=== PATIENT | female | born 1950 | race African-American/Black ===

== ENCOUNTER 2017-01-10 21:14 | Inpatient (IN) | payer MEDICAID, MEDICARE ==
[~2017-01-10] VITALS: Ht 162.6 cm; Wt 90.7 kg
[2017-01-10 21:31] VITALS: BP 128/86
[2017-01-10] MEDS ORDERED: NORCO 5-325 TA1 EACH ORAL (21:37)
[2017-01-10] MEDS ORDERED: ATORVASTATIN CA10 MG ORAL (21:37)
[2017-01-10] MEDS ORDERED: ASPIRIN EC81 MG ORAL (21:37)
[2017-01-10] MEDS ORDERED: AMLODIPINE BESY10 MG ORAL (21:37)
[2017-01-10] MEDS ORDERED: APRESOLINE10 MG ORAL (21:37)
[2017-01-10] MEDS ORDERED: ATIVAN0.5 MG ORAL (21:37)
[2017-01-10] MEDS ORDERED: COLACE250 MG ORAL (21:37)
[2017-01-10] MEDS ORDERED: ISOSORBIDE MONO30 M1 PO (21:37)
[2017-01-10] MEDS ORDERED: ACETAMINOPHEN325 M1 ORAL (21:37)
[2017-01-10] MEDS ORDERED: PANTOPRAZOLE SO40 MG ORAL (21:37)
[2017-01-10] MEDS ORDERED: CATAPRES0.1 MG ORAL (21:37)
[2017-01-10] MEDS ORDERED: CEFTRIAXONE2 G2 IV (21:37)
[2017-01-10] MEDS ORDERED: RELISTOR150 MG PO (21:37)
[2017-01-10 21:43] LABS: MEAN CORPUSCULAR HEMOGLOBIN 27.2 PG (27.0-31.0); MEAN CORPUSCULAR HGB CONC 29.8 G/DL (32.0-36.0); MEAN CORPUSCULAR VOLUME 91 FL (80-99); MEAN PLATELET VOLUME 5.5 FL (6.5-10.1); PLATELET COUNT 286 K/UL (150-450); RED BLOOD COUNT 4.28 M/UL (4.20-5.40); RED CELL DISTRIBUTION WIDTH 18.9 % (11.6-14.8)
[2017-01-10 21:45] LABS: BASOPHILS % (AUTO) 2.1 % (0.0-2.0); EOSINOPHILS % (AUTO) 0.6 % (0.0-3.0); LYMPHOCYTES % (AUTO) 4.7 % (20.0-45.0); MONOCYTES % (AUTO) 6.1 % (1.0-10.0); NEUTROPHILS % (AUTO) 86.5 % (45.0-75.0)
[2017-01-10 22:00] LABS: ANION GAP 9 mmol/L (5-15); CALCIUM 8.2 MG/DL (8.5-10.1); CARBON DIOXIDE 23 MMOL/L (21-32); CHLORIDE 111 MMOL/L (98-107); CREATININE 0.7 MG/DL (0.55-1.30); GLOMERULAR FILTRATION RATE > 60 mL/min (>60); POTASSIUM 3.9 MMOL/L (3.5-5.1); SODIUM 143 MMOL/L (136-145)
[2017-01-10 22:08] LABS: ABG PCO2 28.7 mmHg (35.0-45.0)
[2017-01-10 22:09] LABS: ABG BASE EXCESS -0.7
[2017-01-10 22:10] LABS: ABG ALLEN TEST POSITIVE
--- NOTE | 2017-01-10 22:10 | Emergency Room Report ---
History of Present Illness General Chief Complaint: Chest Pain Source: Patient, Medical Record Present Illness HPI Patient present with complaints of chest pain left-sided Shortness of breath patient reports she has a history of COPD and lung disease She is on oxygen at the long term She reports being recently diagnosed with an infection in the heart has a PICC line in place Denies any vomiting or diarrhea denies any neck pain or photophobia Patient does have some exertional dyspnea Has a mild cough as well Pain or chest area is 5/10 burning sensation Allergies: Coded Allergies: No Known Allergies (Unverified , 01/10/17) Patient History Past Medical History: see triage record Pertinent Family History: none Last Menstrual Period: none Now: No : 0 Para: 0 Reviewed Nursing Documentation: PMH: Agreed, PSxH: Agreed Nursing Documentation-PMH Hx Cardiac Problems: Yes - Endocarditis, Heart Failure Hx Hypertension: Yes Hx COPD: Yes - dyspnea Hx Gastrointestinal Problems: Yes - Gastritis, Diverticulitis Review of Systems All Other Systems: negative except mentioned in HPI Physical Exam Vital Signs Date Time Temp Pulse Resp B/P (MAP) Pulse Ox O2 Delivery O2 Flow Rate FiO2 01/10/17 21:08 98.8 110 24 122/85 87 Simple Mask 12.0 01/10/17 21:58 40 Sp02 EP Interpretation: reviewed, abnormal - 87% which is a low oxygenation, on BiPAP the patient is at 95% which is normal oxygen General Appearance: mild distress - appears uncomfortable Head: normocephalic, atraumatic Eyes: bilateral eye PERRL, bilateral eye EOMI ENT: hearing grossly normal, normal pharynx Neck: full range of motion, supple Respiratory: no retraction, no accessory muscle use, crackles - Bilaterally no obvious retractions, no obvious wheezing, Cardiovascular #1: regular rate, rhythm, no edema Gastrointestinal: normal bowel sounds, soft, no mass Musculoskeletal: normal inspection, back normal Neurologic: alert, oriented x3, responsive Skin: other - PICC line in the right upper arm Lymphatic: no adenopathy Medical Decision Making Diagnostic Impression: Primary Impression: Acute CHF Additional Impressions: Pulmonary edema COPD exacerbation ER Course Patient is a fairly complex patient with multiple differential to consideration including but not limited to cardiac cardiopulmonary and vascular emergencies Upon initial arrival the patient was placed on BiPAP X-ray shows pulmonary congestion X-ray shows congestion along with possible infiltrates Patient was fairly hypoxic on the ABG and continued on BiPAP At this time also receiving Lasix and admitted for further care Labs Test 01/10/17 21:02 01/10/17 21:20 01/10/17 22:05 01/11/17 04:30 White Blood Count 13.0 K/UL (4.8-10.8) 9.6 K/UL (4.8-10.8) Red Blood Count 4.28 M/UL (4.20-5.40) 4.67 M/UL (4.20-5.40) Hemoglobin 11.6 G/DL (12.0-16.0) 12.7 G/DL (12.0-16.0) Hematocrit 39.1 % (37.0-47.0) 41.7 % (37.0-47.0) Mean Corpuscular Volume 91 FL (80-99) 89 FL (80-99) Mean Corpuscular Hemoglobin 27.2 PG (27.0-31.0) 27.2 PG (27.0-31.0) Mean Corpuscular Hemoglobin Concent 29.8 G/DL (32.0-36.0) 30.5 G/DL (32.0-36.0) Red Cell Distribution Width 18.9 % (11.6-14.8) 19.0 % (11.6-14.8) Platelet Count 286 K/UL (150-450) 302 K/UL (150-450) Mean Platelet Volume 5.5 FL (6.5-10.1) 6.6 FL (6.5-10.1) Neutrophils (%) (Auto) 86.5 % (45.0-75.0) % (45.0-75.0) Lymphocytes (%) (Auto) 4.7 % (20.0-45.0) % (20.0-45.0) Monocytes (%) (Auto) 6.1 % (1.0-10.0) % (1.0-10.0) Eosinophils (%) (Auto) 0.6 % (0.0-3.0) % (0.0-3.0) Basophils (%) (Auto) 2.1 % (0.0-2.0) % (0.0-2.0) Sodium Level 143 MMOL/L (136-145) Potassium Level 3.9 MMOL/L (3.5-5.1) Chloride Level 111 MMOL/L (98-107) Carbon Dioxide Level 23 MMOL/L (21-32) Anion Gap 9 mmol/L (5-15) Blood Urea Nitrogen 8 mg/dL (7-18) Creatinine 0.7 MG/DL (0.55-1.30) Estimat Glomerular Filtration Rate > 60 mL/min (>60) Glucose Level 126 MG/DL (74-106) Calcium Level 8.2 MG/DL (8.5-10.1) Total Bilirubin 0.4 MG/DL (0.2-1.0) Aspartate Amino Transf (AST/SGOT) 27 U/L (15-37) Alanine Aminotransferase (ALT/SGPT) 42 U/L (12-78) Alkaline Phosphatase 80 U/L (46-116) Total Creatine Kinase 51 U/L (26-308) Creatine Kinase MB 3.2 NG/ML (0.0-3.6) Creatine Kinase MB Relative Index 6.2 Troponin I 0.035 ng/mL (0.000-0.056) Pro-B-Type Natriuretic Peptide 2456 pg/mL (0-125) Total Protein 5.6 G/DL (6.4-8.2) Albumin 2.6 G/DL (3.4-5.0) Globulin 3.0 g/dL Albumin/Globulin Ratio 0.9 (1.0-2.7) Lipase 48 U/L (73-393) Lactic Acid Level 1.70 mmol/L (0.66-2.22) Arterial Blood pH 7.493 (7.350-7.450) Arterial Blood Partial Pressure CO2 28.7 mmHg (35.0-45.0) Arterial Blood Partial Pressure O2 46.0 mmHg (75.0-100.0) Arterial Blood HCO3 21.5 mmol/L (22.0-26.0) Arterial Blood Oxygen Saturation 67.0 % (92.0-98.0) Arterial Blood Base Excess -0.7 Dell Test Positive EKG Diagnostic Results Rate: normal Rhythm: NSR ST Segments: other - Nonspecific ST and T-wave changes Rhythm Strip Diag. Results EP Interpretation: yes Rate: 66 Rhythm: NSR, no PVC's, no ectopy Chest X-Ray Diagnostic Results Chest X-Ray Diagnostic Results : Chest X-Ray Ordered: Yes # of Views/Limited/Complete: 1 View Indication: Chest Pain EP Interpretation: Yes Interpretation: no pneumothorax, other - Cardiomegaly, pulmonary congestion , no acute bony abnormality Impression: Other - Pulmonary congestion acute CHF Electronically Signed by: Jose R Wong, DO CT/MRI/US Diagnostic Results CT/MRI/US Diagnostic Results : Impression CT a chest no acute pulmonary embolism severe emphysema bronchial thickening bilateral pleural effusions hiatal hernia cardiomegaly Last Vital Signs Date Time Temp Pulse Resp B/P (MAP) Pulse Ox O2 Delivery O2 Flow Rate FiO2 01/10/17 21:58 40 01/10/17 21:45 106 25 Simple Mask 4.0 01/10/17 21:31 98.8 128/86 89 Status: improved Disposition: ADMITTED INPATIENT Condition: Serious Referrals: NON PHYSICIAN (PCP) JOSE R WONG D.O. Jan 10, 2017 22:10
[2017-01-10 22:13] LABS: ALANINE AMINOTRANSFERASE 42 U/L (12-78); ALBUMIN/GLOBULIN RATIO 0.9 (1.0-2.7); ASPARTATE AMINO TRANSFERASE 27 U/L (15-37); CKMB 3.2 NG/ML (0.0-3.6); LIPASE 48 U/L (73-393); TOTAL PROTEIN 5.6 G/DL (6.4-8.2)
[2017-01-10 23:06] VITALS: BP 136/91
[2017-01-10] MEDS ORDERED: LORazepam 0.5mg tab ORAL PRN (23:30)
[2017-01-10] MEDS ORDERED: Promethazine/Codeine 5ml UD ORAL PRN (23:30)
[2017-01-10] MEDS ORDERED: Albuterol/Ipratropium 3ml neb HHN PRN (23:30)
[2017-01-10] MEDS ORDERED: Nitroglycerin Subl 0.4mg tab SL PRN (23:30)
[2017-01-10] MEDS ORDERED: LORazepam Inj 2mg/ml 1ml IV PRN (23:30)
[2017-01-10] MEDS: Solu-MEDROL 125mg Inj IV SCH (23:53)
[2017-01-11] VITALS (9 sets, daily range): BP systolic 121–143; BP diastolic 87–109
[2017-01-11] MEDS ORDERED: Albuterol ud Inhalation HHN ONE
[2017-01-11] MEDS ORDERED: Ipratropium 0.02% Inh Soln 2.5ml UD HHN ONE
[2017-01-11 04:38] LABS: MEAN CORPUSCULAR HEMOGLOBIN 27.2 PG (27.0-31.0); MEAN CORPUSCULAR HGB CONC 30.5 G/DL (32.0-36.0); MEAN CORPUSCULAR VOLUME 89 FL (80-99); MEAN PLATELET VOLUME 6.6 FL (6.5-10.1); PLATELET COUNT 302 K/UL (150-450); RED BLOOD COUNT 4.67 M/UL (4.20-5.40); WHITE BLOOD COUNT 9.6 K/UL (4.8-10.8)
[2017-01-11 04:52] LABS: ALANINE AMINOTRANSFERASE 47 U/L (12-78); ALBUMIN/GLOBULIN RATIO 0.9 (1.0-2.7); ANION GAP 9 mmol/L (5-15); ASPARTATE AMINO TRANSFERASE 24 U/L (15-37); CALCIUM 8.9 MG/DL (8.5-10.1); CARBON DIOXIDE 27 MMOL/L (21-32); CHLORIDE 107 MMOL/L (98-107); CREATININE 0.9 MG/DL (0.55-1.30); GLOMERULAR FILTRATION RATE > 60 mL/min (>60); POTASSIUM 4.1 MMOL/L (3.5-5.1); SODIUM 142 MMOL/L (136-145); TOTAL PROTEIN 6.5 G/DL (6.4-8.2)
[2017-01-11] MEDS: Morphine Sulfate 2mg/ml Inj IVP PRN ×4 (05:24→21:08)
[2017-01-11] MEDS: Solu-MEDROL 125mg Inj IV SCH ×3 (06:09→17:50)
[2017-01-11 08:06] LABS: ANISOCYTOSIS 1+; BAND NEUTROPHILS % (MANUAL) 0 % (0-8); BASOPHILS % (MANUAL) 0 % (0-2); EOSINOPHILS % (MANUAL) 0 % (0-3); HYPOCHROMASIA 1+; LYMPHOCYTES % (MANUAL) 2 % (20-45); NEUTROPHILS % (MANUAL) 97 % (45-75); PLATELET ESTIMATE ADEQUATE; PLATELET MORPHOLOGY NORMAL; TOTAL CELLS COUNTED 100
[2017-01-11] MEDS ORDERED: HydrALAZINE 10mg Tab ONE (09:44)
[2017-01-11] MEDS ORDERED: Heparin 5000 units/ml inj ONE (09:44)
--- NOTE | 2017-01-11 09:52 | Diagnostic Imaging Report ---
Indication: Chest pain Technique: One view of the chest Comparison: none Findings: The heart is enlarged. There is a calcified granulomatous lymph node in the left aortopulmonary window. There is bilateral diffuse interstitial prominence. There is slight hyperlucency of the right upper lung. There is a right arm PICC Impression: Cardiomegaly Diffuse bilateral interstitial prominence. Subsequent chest CT indicates this is mostly on the basis of chronic interstitial fibrosis. There is probably a component of interstitial congestion as well, however Upper lobe hyperlucency, again the basis of COPD changes Small bilateral pleural effusions Evidence of old granulomatous disease
[2017-01-11] MEDS: HydrALAZINE 10mg Tab ORAL SCH ×2 (09:55→21:08)
[2017-01-11] MEDS: Heparin 5000 units/ml inj SUBQ SCH ×2 (09:56→21:11)
--- NOTE | 2017-01-11 10:12 | Diagnostic Imaging Report ---
ndication: SOB Technique: IV administration nonionic contrast. Spiral acquisitions obtained from the lung bases to the lung apices. Multiplanar and 3-D reconstructions were generated. Total dose length product 508 mGycm. CTDIvol(s) 12, 12, 17 mGy. Dose reduction achieved using automated exposure control Comparison: None Findings: There is good quality opacification of the pulmonary arteries. No intraluminal filling defects or other findings to suggest acute pulmonary embolus are demonstrated. There is no evidence of thoracic aortic aneurysm or dissection. The ascending thoracic aorta is mildly ectatic but not aneurysmal The right and left pulmonary arteries are somewhat ectatic, measuring up to 2.7 cm in diameter. There is cardiomegaly, predominantly due to enlargement of the right atrium and right ventricle. The lungs demonstrate extensive hyperinflation in the upper lobes bilaterally. Lower lobes and right middle lobe demonstrate considerable honeycombing. There are also posterior dependent atelectatic changes. No definite mass or infiltrate is demonstrated. There are small bilateral pleural effusions There is a moderate-sized sliding-type hiatal hernia. There is esophageal wall thickening as well. No pericardial effusion. Large calcified granulomatous lymph node is seen in the aortopulmonary window. There are prominent hilar lymph nodes bilaterally. No mediastinal mass or adenopathy. The mediastinum does appear diffusely somewhat edematous. There is a lesser extent edema of the subcutaneous fat Included thyroid is unremarkable. The included upper abdominal anatomy is remarkable for the presence of a 19 mm cyst in segment 4A of the liver. Other subcentimeter low-attenuation lesions are seen in the liver which are too small to characterize. The liver is diffusely somewhat enlarged. Small enhancing and low-attenuation foci are seen in the spleen. The bones demonstrate degenerative spondylosis changes. There is a compression fracture deformity of the T8 vertebral body. Impression: No evidence of acute pulmonary embolus COPD changes Diffuse bilateral pulmonary parenchymal disease, appearance predominantly that of honeycombing, consistent with chronic interstitial fibrotic changes. Superimposed acute parenchymal changes also a possibility Small bilateral pleural effusions Cardiomegaly, predominantly right-sided Mild ectasia of the main pulmonary arteries bilaterally, could indicate pulmonary to hypertension Edema of the mediastinum and to a lesser extent the subcutaneous fat Sliding-type hiatal hernia. Esophageal wall thickening could be on the basis of esophagitis T8 compression fracture deformity, acuity indeterminate. Consider MRI if this is clinically relevant Evidence of old granulomatous disease Liver cyst. Additional subcentimeter low-attenuation lesions in the liver, most likely benign simple cysts. No further followup necessary Hepatomegaly High or low attenuation splenic foci, nonspecific This agrees with the preliminary interpretation provided overnight by [facility] teleradiology service. The CT scanner at [facility] is accredited by the [employer] and the scans are performed using protocols designed to limit radiation exposure to as low as reasonably achievable to attain images of sufficient resolution adequate for diagnostic evaluation.
--- NOTE | 2017-01-11 10:58 | Consultation ---
History of Present Illness General Date patient seen: Jan 11, 2017 Chief Complaint: Chest Pain Present Illness HPI 66 year old female with hx of COPD, on chronic O2 recent endocarditis, half-way resident brought in by paramedics with complaints of chest pain left- sided and Shortness of breath. She has some exertional dyspnea and a mild cough as well. She had a ct angio in ER ruling out PE but showing extensive emphysematous lung disease. She was started on BIPAP and admitted to [facility]. Allergies: Coded Allergies: No Known Allergies (Unverified , 01/10/17) Medication History Scheduled Amlodipine Besylate* (Amlodipine Besylate*), 10 MG ORAL BEDTIME, (Reported) Aspirin Ec* (Aspirin Ec*), 81 MG ORAL DAILY, (Reported) Atorvastatin Calcium* (Lipitor*), 10 MG ORAL BEDTIME, (Reported) Docusate Sodium (Docusate Sodium), 250 MG ORAL TWICE A DAY, (Reported) Hydralazine HCl (Hydralazine HCl), 10 MG ORAL EVERY 12 HOURS, (Reported) Isosorbide Mononitrate (Isosorbide Mononitrate Er), 30 MG PO DAILY, (Reported) Methylnaltrexone [place] (Relistor), 450 MG PO BEFORE MEALS, (Reported) Pantoprazole* (Pantoprazole*), 40 MG ORAL DAILY, (Reported) Scheduled PRN Acetaminophen* (Acetaminophen 325MG Tablet*), 325 MG ORAL Q6H PRN for Mild Pain (Pain Scale 1-3), (Reported) Acetaminophen* (Acetaminophen 325MG Tablet*), 325 MG ORAL Q6H PRN for temperature >101, (Reported) Ceftriaxone Sodium (Ceftriaxone), 2 GM IV DAILY PRN for endocarditis , (Reported ) Clonidine Hcl* (Catapres*), 0.1 MG ORAL EVERY 6 HOURS PRN for SBP >160, ( Reported) Hydrocodone Bit/Acetaminophen 5-325* ([place]ma 5-325*), 1 TAB ORAL Q4H PRN for For Pain, (Reported) Lorazepam* (Ativan*), 0.5 MG ORAL Q6HR PRN for For Anxiety, (Reported) Patient History Healthcare decision maker Resuscitation status Advanced Directive on File Past Medical/Surgical History Past Medical/Surgical History: (1) Chronic hypoxemic respiratory failure (2) Emphysema (3) Endocarditis (4) History of hypertension Review of Systems All Other Systems: negative except mentioned in HPI Physical Exam General Appearance: WD/WN, no apparent distress Lines, tubes and drains: peripheral HEENT: normocephalic Neck: non-tender, normal alignment Respiratory/Chest: chest wall non-tender, rhonchi - left, rhonchi - right Cardiovascular/Chest: normal peripheral pulses, normal rate Abdomen: normal bowel sounds, non tender Genitourinary/Rectal: normal genital exam, normal rectal exam Extremities: normal range of motion, non-tender Skin Exam: normal pigmentation 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, no motor/sensory deficits Last 24 Hour Vital Signs Date Time Temp Pulse Resp B/P (MAP) Pulse Ox O2 Delivery O2 Flow Rate FiO2 01/11/17 10:35 99 16 133/95 100 Bi-pap 40 01/11/17 09:55 135/104 01/11/17 09:14 100 22 100 Facial 40 01/11/17 08:40 98 21 141/109 98 4.0 40 01/11/17 08:02 95 18 100 Facial 40 01/11/17 07:30 93 21 142/107 98 4.0 40 01/11/17 06:44 98.8 93 23 143/107 98 4.0 40 01/11/17 06:13 98.8 01/11/17 05:28 98.8 93 23 143/107 98 4.0 40 01/11/17 05:19 103 23 96 Facial 40 01/11/17 03:54 97 18 95 Facial 40 01/11/17 03:53 4.0 40 01/11/17 02:52 98.8 96 14 121/93 98 Bi-pap 4.0 40 01/11/17 01:18 98.8 103 24 137/91 94 Bi-pap 4.0 40 01/11/17 01:18 4.0 40 01/11/17 00:45 106 24 92 Bi-pap 01/11/17 00:44 108 24 92 Facial 40 01/11/17 00:05 99 16 99 Bi-pap 40 01/11/17 00:03 97 16 96 Facial 40 01/10/17 23:06 98.8 95 14 136/91 96 Bi-pap 40 01/10/17 22:11 101 22 96 Facial 40 01/10/17 21:58 40 01/10/17 21:45 106 25 Simple Mask 4.0 01/10/17 21:31 98.8 106 25 128/86 89 Simple Mask 4.0 01/10/17 21:08 98.8 110 24 122/85 87 Simple Mask 12.0 Intake and Output 01/11/17 01/12/17 19:00 07:00 Intake Total 120 ml Balance 120 ml Intake Oral 120 ml Laboratory Tests Test 01/10/17 21:02 01/10/17 21:20 01/10/17 22:05 01/11/17 04:30 White Blood Count 13.0 K/UL (4.8-10.8) H 9.6 K/UL (4.8-10.8) Red Blood Count 4.28 M/UL (4.20-5.40) 4.67 M/UL (4.20-5.40) Hemoglobin 11.6 G/DL (12.0-16.0) L 12.7 G/DL (12.0-16.0) Hematocrit 39.1 % (37.0-47.0) 41.7 % (37.0-47.0) Mean Corpuscular Volume 91 FL (80-99) 89 FL (80-99) Mean Corpuscular Hemoglobin 27.2 PG (27.0-31.0) 27.2 PG (27.0-31.0) Mean Corpuscular Hemoglobin Concent 29.8 G/DL (32.0-36.0) L 30.5 G/DL (32.0-36.0) L Red Cell Distribution Width 18.9 % (11.6-14.8) H 19.0 % (11.6-14.8) H Platelet Count 286 K/UL (150-450) 302 K/UL (150-450) Mean Platelet Volume 5.5 FL (6.5-10.1) L 6.6 FL (6.5-10.1) Neutrophils (%) (Auto) 86.5 % (45.0-75.0) H % (45.0-75.0) Lymphocytes (%) (Auto) 4.7 % (20.0-45.0) L % (20.0-45.0) Monocytes (%) (Auto) 6.1 % (1.0-10.0) % (1.0-10.0) Eosinophils (%) (Auto) 0.6 % (0.0-3.0) % (0.0-3.0) Basophils (%) (Auto) 2.1 % (0.0-2.0) H % (0.0-2.0) Sodium Level 143 MMOL/L (136-145) 142 MMOL/L (136-145) Potassium Level 3.9 MMOL/L (3.5-5.1) 4.1 MMOL/L (3.5-5.1) Chloride Level 111 MMOL/L (98-107) H 107 MMOL/L (98-107) Carbon Dioxide Level 23 MMOL/L (21-32) 27 MMOL/L (21-32) Anion Gap 9 mmol/L (5-15) 9 mmol/L (5-15) Blood Urea Nitrogen 8 mg/dL (7-18) 9 mg/dL (7-18) Creatinine 0.7 MG/DL (0.55-1.30) 0.9 MG/DL (0.55-1.30) Estimat Glomerular Filtration Rate > 60 mL/min (>60) > 60 mL/min (>60) Glucose Level 126 MG/DL (74-106) H 139 MG/DL (74-106) H Calcium Level 8.2 MG/DL (8.5-10.1) L 8.9 MG/DL (8.5-10.1) Total Bilirubin 0.4 MG/DL (0.2-1.0) 0.5 MG/DL (0.2-1.0) Aspartate Amino Transf (AST/SGOT) 27 U/L (15-37) 24 U/L (15-37) Alanine Aminotransferase (ALT/SGPT) 42 U/L (12-78) 47 U/L (12-78) Alkaline Phosphatase 80 U/L (46-116) 91 U/L (46-116) Total Creatine Kinase 51 U/L (26-308) Creatine Kinase MB 3.2 NG/ML (0.0-3.6) Creatine Kinase MB Relative Index 6.2 Troponin I 0.035 ng/mL (0.000-0.056) Pro-B-Type Natriuretic Peptide 2456 pg/mL (0-125) H Total Protein 5.6 G/DL (6.4-8.2) L 6.5 G/DL (6.4-8.2) Albumin 2.6 G/DL (3.4-5.0) L 3.0 G/DL (3.4-5.0) L Globulin 3.0 g/dL 3.5 g/dL Albumin/Globulin Ratio 0.9 (1.0-2.7) L 0.9 (1.0-2.7) L Lipase 48 U/L (73-393) L Lactic Acid Level 1.70 mmol/L (0.66-2.22) Arterial Blood pH 7.493 (7.350-7.450) Arterial Blood Partial Pressure CO2 28.7 mmHg (35.0-45.0) L Arterial Blood Partial Pressure O2 46.0 mmHg (75.0-100.0) Arterial Blood HCO3 21.5 mmol/L (22.0-26.0) L Arterial Blood Oxygen Saturation 67.0 % (92.0-98.0) L Arterial Blood Base Excess -0.7 Dell Test Positive Differential Total Cells Counted 100 Neutrophils % (Manual) 97 % (45-75) H Lymphocytes % (Manual) 2 % (20-45) L Monocytes % (Manual) 1 % (1-10) Eosinophils % (Manual) 0 % (0-3) Basophils % (Manual) 0 % (0-2) Band Neutrophils 0 % (0-8) Platelet Estimate Adequate Platelet Morphology Normal Red Blood Cell Morphology Hypochromasia 1+ Anisocytosis 1+ Height (Feet): 5 Height (Inches): 4.00 Weight (Pounds): 200 Medications Current Medications Medications (Trade) Dose Ordered Sig/[place] Route PRN Reason Start Time Stop Time Status Last Admin Dose Admin Acetaminophen (Tylenol) 650 mg Q4H PRN ORAL fever 01/10/17 23:30 02/09/17 23:29 Albuterol/ Ipratropium (Albuterol/ Ipratropium) 3 ml EVERY 4 HOURS PRN HHN dyspnea 01/10/17 23:30 01/15/17 23:29 Amlodipine Besylate (Norvasc) 10 mg BEDTIME ORAL 01/11/17 21:00 02/10/17 20:59 Clonidine HCl (Catapres) 0.1 mg Q4H PRN ORAL sbp more than 160 01/11/17 10:00 02/10/17 09:59 Dextrose (Dextrose 50%) STAT PRN IV Hypoglycemia 01/10/17 23:30 02/09/17 23:29 Heparin Sodium (Porcine) (Heparin 5000 units/ml) 5,000 units EVERY 12 HOURS SUBQ 01/11/17 09:00 02/10/17 08:59 01/11/17 09:56 Hydralazine HCl (Apresoline) 10 mg EVERY 12 HOURS ORAL 01/11/17 09:00 02/10/17 08:59 01/11/17 09:55 Lorazepam (Ativan 2mg/ml 1ml) 0.5 mg Q4H PRN IV For Anxiety 01/10/17 23:30 01/17/17 23:29 01/11/17 08:07 Lorazepam (Ativan) 0.5 mg Q6HR PRN ORAL For Anxiety 01/10/17 23:30 01/17/17 23:29 Methylprednisolone Sodium Succinate (Solu-MEDROL) 60 mg EVERY 6 HOURS IV 01/11/17 00:00 02/10/17 00:00 01/11/17 06:09 Morphine Sulfate (Morphine Sulfate) 2 mg EVERY 4 HOURS PRN IVP severe pain 7-10 01/10/17 23:30 01/17/17 23:29 01/11/17 05:24 Nitroglycerin (Ntg) 0.4 mg Q5M X 3 DOSES PRN SL Prn Chest Pain 01/10/17 23:30 02/09/17 23:29 Ondansetron HCl (Zofran) 4 mg Q6H PRN IVP Nausea & Vomiting 01/10/17 23:30 02/09/17 23:29 Pantoprazole (Protonix) 40 mg DAILY ORAL 01/11/17 09:00 02/10/17 08:59 01/11/17 09:55 Promethazine HCl/ Codeine (Phenergan with Codeine) 5 ml EVERY 6 HOURS PRN ORAL cough 01/10/17 23:30 02/09/17 23:29 Temazepam (Restoril) 15 mg HSPRN PRN ORAL Insomnia 01/10/17 23:30 01/17/17 23:29 Assessment/Plan Problem List: (1) Acute on chronic respiratory failure ICD Codes: J96.20 - Acute and chronic respiratory failure, unspecified whether with hypoxia or hypercapnia SNOMED: 60390195 (2) COPD exacerbation ICD Codes: J44.1 - Chronic obstructive pulmonary disease with (acute) exacerbation SNOMED: 120957509907353 (3) Emphysema ICD Codes: J43.9 - Emphysema, unspecified SNOMED: 99144040 (4) Endocarditis ICD Codes: I38 - Endocarditis, valve unspecified SNOMED: 210629, 66146846 (5) History of hypertension ICD Codes: Z86.79 - Personal history of other diseases of the circulatory system SNOMED: 702352648 Assessment/Plan titrate bipap titrate fio2 taper off bipap if possible steroids, IV check sputum ID evaluation broad spectrum IV abx GARTH LUX Jan 11, 2017 10:58
--- NOTE | 2017-01-11 11:30 | Consultation ---
History of Present Illness General Date patient seen: Jan 11, 2017 Time patient seen: 11:36 Chief Complaint: Chest Pain Present Illness HPI 66 y/o F with hx of CHF, endocarditis, gastritis and diverticultis, COPD on home O2, senior care resident presents to ED on 01/10 with complains of L side CP and SOB/RUELAS, mild cough Denies n/v/d, neck pain. On ED had CTA which was neg for PE but showed extensive emphysematous lung disease. Started on BIPAP Apparently patient has been recently diagnosed with endocarditis and is received IV abx via PICC line. On IV Vanco and Ceftriaxone until 01/19 per SNF medication list. Patient refesr being admitted to [facility] at the end of Nov 2016 where she has presented with several days of worsenin SOB and diagnosed to have endocarditis. Patient unclear of bug or valve involved. Afebrile, mild leukocytosis now resolved. Bcx p. Allergies: Coded Allergies: No Known Allergies (Unverified , 01/10/17) Medication History Scheduled Amlodipine Besylate* (Amlodipine Besylate*), 10 MG ORAL BEDTIME, (Reported) Aspirin Ec* (Aspirin Ec*), 81 MG ORAL DAILY, (Reported) Atorvastatin Calcium* (Lipitor*), 10 MG ORAL BEDTIME, (Reported) Docusate Sodium (Docusate Sodium), 250 MG ORAL TWICE A DAY, (Reported) Hydralazine HCl (Hydralazine HCl), 10 MG ORAL EVERY 12 HOURS, (Reported) Isosorbide Mononitrate (Isosorbide Mononitrate Er), 30 MG PO DAILY, (Reported) Methylnaltrexone [place] (Relistor), 450 MG PO BEFORE MEALS, (Reported) Pantoprazole* (Pantoprazole*), 40 MG ORAL DAILY, (Reported) Scheduled PRN Acetaminophen* (Acetaminophen 325MG Tablet*), 325 MG ORAL Q6H PRN for Mild Pain (Pain Scale 1-3), (Reported) Acetaminophen* (Acetaminophen 325MG Tablet*), 325 MG ORAL Q6H PRN for temperature >101, (Reported) Ceftriaxone Sodium (Ceftriaxone), 2 GM IV DAILY PRN for endocarditis , (Reported ) Clonidine Hcl* (Catapres*), 0.1 MG ORAL EVERY 6 HOURS PRN for SBP >160, ( Reported) Hydrocodone Bit/Acetaminophen 5-325* ([place] 5-325*), 1 TAB ORAL Q4H PRN for For Pain, (Reported) Lorazepam* (Ativan*), 0.5 MG ORAL Q6HR PRN for For Anxiety, (Reported) Patient History Healthcare decision maker Resuscitation status Advanced Directive on File Patient History Narrative Pmhx: as above SH: reviewed FHx: non contributory Review of Systems All Other Systems: negative except mentioned in HPI Physical Exam Physical Exam Narrative General Appearance: WD/WN, no apparent distress Lines, tubes and drains: peripheral HEENT: normocephalic Neck: non-tender, normal alignment Respiratory/Chest: chest wall non-tender, rhonchi - left, rhonchi - right Cardiovascular/Chest: normal peripheral pulses, normal rate Abdomen: normal bowel sounds, non tender Genitourinary/Rectal: normal genital exam, normal rectal exam Extremities: normal range of motion, non-tender, no swelling, erythema or TTP on joints Skin Exam: normal pigmentation, no rashes or lesions 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, no motor/sensory deficits Last 24 Hour Vital Signs Date Time Temp Pulse Resp B/P (MAP) Pulse Ox O2 Delivery O2 Flow Rate FiO2 01/11/17 10:35 99 16 133/95 100 Bi-pap 40 01/11/17 09:55 135/104 01/11/17 09:14 100 22 100 Facial 40 01/11/17 08:40 98 21 141/109 98 4.0 40 01/11/17 08:02 95 18 100 Facial 40 01/11/17 07:30 93 21 142/107 98 4.0 40 01/11/17 06:44 98.8 93 23 143/107 98 4.0 40 01/11/17 06:13 98.8 01/11/17 05:28 98.8 93 23 143/107 98 4.0 40 01/11/17 05:19 103 23 96 Facial 40 01/11/17 03:54 97 18 95 Facial 40 01/11/17 03:53 4.0 40 01/11/17 02:52 98.8 96 14 121/93 98 Bi-pap 4.0 40 01/11/17 01:18 98.8 103 24 137/91 94 Bi-pap 4.0 40 01/11/17 01:18 4.0 40 01/11/17 00:45 106 24 92 Bi-pap 01/11/17 00:44 108 24 92 Facial 40 01/11/17 00:05 99 16 99 Bi-pap 40 01/11/17 00:03 97 16 96 Facial 40 01/10/17 23:06 98.8 95 14 136/91 96 Bi-pap 40 01/10/17 22:11 101 22 96 Facial 40 01/10/17 21:58 40 01/10/17 21:45 106 25 Simple Mask 4.0 01/10/17 21:31 98.8 106 25 128/86 89 Simple Mask 4.0 01/10/17 21:08 98.8 110 24 122/85 87 Simple Mask 12.0 Intake and Output 01/11/17 01/12/17 19:00 07:00 Intake Total 120 ml Balance 120 ml Intake Oral 120 ml Laboratory Tests Test 01/10/17 21:02 01/10/17 21:20 01/10/17 22:05 01/11/17 04:30 White Blood Count 13.0 K/UL (4.8-10.8) H 9.6 K/UL (4.8-10.8) Red Blood Count 4.28 M/UL (4.20-5.40) 4.67 M/UL (4.20-5.40) Hemoglobin 11.6 G/DL (12.0-16.0) L 12.7 G/DL (12.0-16.0) Hematocrit 39.1 % (37.0-47.0) 41.7 % (37.0-47.0) Mean Corpuscular Volume 91 FL (80-99) 89 FL (80-99) Mean Corpuscular Hemoglobin 27.2 PG (27.0-31.0) 27.2 PG (27.0-31.0) Mean Corpuscular Hemoglobin Concent 29.8 G/DL (32.0-36.0) L 30.5 G/DL (32.0-36.0) L Red Cell Distribution Width 18.9 % (11.6-14.8) H 19.0 % (11.6-14.8) H Platelet Count 286 K/UL (150-450) 302 K/UL (150-450) Mean Platelet Volume 5.5 FL (6.5-10.1) L 6.6 FL (6.5-10.1) Neutrophils (%) (Auto) 86.5 % (45.0-75.0) H % (45.0-75.0) Lymphocytes (%) (Auto) 4.7 % (20.0-45.0) L % (20.0-45.0) Monocytes (%) (Auto) 6.1 % (1.0-10.0) % (1.0-10.0) Eosinophils (%) (Auto) 0.6 % (0.0-3.0) % (0.0-3.0) Basophils (%) (Auto) 2.1 % (0.0-2.0) H % (0.0-2.0) Sodium Level 143 MMOL/L (136-145) 142 MMOL/L (136-145) Potassium Level 3.9 MMOL/L (3.5-5.1) 4.1 MMOL/L (3.5-5.1) Chloride Level 111 MMOL/L (98-107) H 107 MMOL/L (98-107) Carbon Dioxide Level 23 MMOL/L (21-32) 27 MMOL/L (21-32) Anion Gap 9 mmol/L (5-15) 9 mmol/L (5-15) Blood Urea Nitrogen 8 mg/dL (7-18) 9 mg/dL (7-18) Creatinine 0.7 MG/DL (0.55-1.30) 0.9 MG/DL (0.55-1.30) Estimat Glomerular Filtration Rate > 60 mL/min (>60) > 60 mL/min (>60) Glucose Level 126 MG/DL (74-106) H 139 MG/DL (74-106) H Calcium Level 8.2 MG/DL (8.5-10.1) L 8.9 MG/DL (8.5-10.1) Total Bilirubin 0.4 MG/DL (0.2-1.0) 0.5 MG/DL (0.2-1.0) Aspartate Amino Transf (AST/SGOT) 27 U/L (15-37) 24 U/L (15-37) Alanine Aminotransferase (ALT/SGPT) 42 U/L (12-78) 47 U/L (12-78) Alkaline Phosphatase 80 U/L (46-116) 91 U/L (46-116) Total Creatine Kinase 51 U/L (26-308) Creatine Kinase MB 3.2 NG/ML (0.0-3.6) Creatine Kinase MB Relative Index 6.2 Troponin I 0.035 ng/mL (0.000-0.056) Pro-B-Type Natriuretic Peptide 2456 pg/mL (0-125) H Total Protein 5.6 G/DL (6.4-8.2) L 6.5 G/DL (6.4-8.2) Albumin 2.6 G/DL (3.4-5.0) L 3.0 G/DL (3.4-5.0) L Globulin 3.0 g/dL 3.5 g/dL Albumin/Globulin Ratio 0.9 (1.0-2.7) L 0.9 (1.0-2.7) L Lipase 48 U/L (73-393) L Lactic Acid Level 1.70 mmol/L (0.66-2.22) Arterial Blood pH 7.493 (7.350-7.450) Arterial Blood Partial Pressure CO2 28.7 mmHg (35.0-45.0) L Arterial Blood Partial Pressure O2 46.0 mmHg (75.0-100.0) Arterial Blood HCO3 21.5 mmol/L (22.0-26.0) L Arterial Blood Oxygen Saturation 67.0 % (92.0-98.0) L Arterial Blood Base Excess -0.7 Dell Test Positive Differential Total Cells Counted 100 Neutrophils % (Manual) 97 % (45-75) H Lymphocytes % (Manual) 2 % (20-45) L Monocytes % (Manual) 1 % (1-10) Eosinophils % (Manual) 0 % (0-3) Basophils % (Manual) 0 % (0-2) Band Neutrophils 0 % (0-8) Platelet Estimate Adequate Platelet Morphology Normal Red Blood Cell Morphology Hypochromasia 1+ Anisocytosis 1+ Height (Feet): 5 Height (Inches): 4.00 Weight (Pounds): 200 Medications Current Medications Medications (Trade) Dose Ordered Sig/[place] Route PRN Reason Start Time Stop Time Status Last Admin Dose Admin Acetaminophen (Tylenol) 650 mg Q4H PRN ORAL fever 01/10/17 23:30 02/09/17 23:29 Albuterol/ Ipratropium (Albuterol/ Ipratropium) 3 ml EVERY 4 HOURS PRN HHN dyspnea 01/10/17 23:30 01/15/17 23:29 Amlodipine Besylate (Norvasc) 10 mg BEDTIME ORAL 01/11/17 21:00 02/10/17 20:59 Cefepime HCl 1 gm/ Dextrose 55 ml @ 110 mls/hr Q12HR@0000,1200 IVPB 01/11/17 12:00 01/18/17 11:59 Clonidine HCl (Catapres) 0.1 mg Q4H PRN ORAL sbp more than 160 01/11/17 10:00 02/10/17 09:59 Dextrose (Dextrose 50%) STAT PRN IV Hypoglycemia 01/10/17 23:30 02/09/17 23:29 Heparin Sodium (Porcine) (Heparin 5000 units/ml) 5,000 units EVERY 12 HOURS SUBQ 01/11/17 09:00 02/10/17 08:59 01/11/17 09:56 Hydralazine HCl (Apresoline) 10 mg EVERY 12 HOURS ORAL 01/11/17 09:00 02/10/17 08:59 01/11/17 09:55 Lorazepam (Ativan 2mg/ml 1ml) 0.5 mg Q4H PRN IV For Anxiety 01/10/17 23:30 01/17/17 23:29 01/11/17 08:07 Lorazepam (Ativan) 0.5 mg Q6HR PRN ORAL For Anxiety 01/10/17 23:30 01/17/17 23:29 Methylprednisolone Sodium Succinate (Solu-MEDROL) 60 mg EVERY 6 HOURS IV 01/11/17 00:00 02/10/17 00:00 01/11/17 06:09 Morphine Sulfate (Morphine Sulfate) 2 mg EVERY 4 HOURS PRN IVP severe pain 7-10 01/10/17 23:30 01/17/17 23:29 01/11/17 05:24 Nitroglycerin (Ntg) 0.4 mg Q5M X 3 DOSES PRN SL Prn Chest Pain 01/10/17 23:30 02/09/17 23:29 Ondansetron HCl (Zofran) 4 mg Q6H PRN IVP Nausea & Vomiting 01/10/17 23:30 02/09/17 23:29 Pantoprazole (Protonix) 40 mg DAILY ORAL 01/11/17 09:00 02/10/17 08:59 01/11/17 09:55 Promethazine HCl/ Codeine (Phenergan with Codeine) 5 ml EVERY 6 HOURS PRN ORAL cough 01/10/17 23:30 02/09/17 23:29 Temazepam (Restoril) 15 mg HSPRN PRN ORAL Insomnia 01/10/17 23:30 01/17/17 23:29 Assessment/Plan Assessment/Plan Abx: Cefepime 01/11- Levaquin x1 01/11 Assesment: Acute SOB- r/o endocarditis causing CHF vs COPD exacerbations vs combination -CTA chest: No evidence of acute pulmonary embolus. COPD changes. Diffuse bilateral pulmonary parenchymal disease, appearance predominantly that of honeycombing, consistent with chronic interstitial fibrotic changes. Superimposed acute parenchymal changes also a possibility, Small bilateral pleural effusions. Cardiomegaly, predominantly right-sided Mild ectasia of the main pulmonary arteries bilaterally, could indicate pulmonary to hypertension, Edema of the mediastinum and to a lesser extent the subcutaneous fat. Sliding- type hiatal hernia. Esophageal wall thickening could be on the basis of esophagitis. T8 compression fracture deformity, acuity indeterminate. Consider MRI if this is clinically relevant. Evidence of old granulomatous disease. Liver cyst. Additional subcentimeter low-attenuation lesions in the liver, most likely benign simple cysts. No further followup necessary. Hepatomegaly. High or low attenuation splenic foci, nonspecific Recent dx of endocarditis (?valve, organism), on RX -per SNF med list: Vanco and Ceftriaxone until 01/19 Leukocytosis, resolved -afebrile -Bcx p CHF hx gastritis hxdiverticultis COPD on home O2 Plan: -Continue Cefepime pending sputum cx; upon discharge can be transitioned back to Ceftriaxone until 01/19 -Resume IV Vancomycin per her endocarditis tx regimen (will continue until 01/19 ) -obtain 2 echo to evaluate for CHF, valve malfunction -may need BABATUNDE -f/u cx -obtain records from [facility] -baseline ESR/CRP -Monitor CBC/BMP, temperatures Thank you for this consultation. Will continue to follow along with you. Discussed with Ro Johnson M.D. Jan 11, 2017 11:30
[2017-01-11] MEDS: Cefepime 1gm/D5W 55ml IVPB SCH ×2 (13:33)
--- NOTE | 2017-01-11 17:58 | Cardiology Report ---
APPROVED REPORT EKG Measurement Heart [id number] Sinus tachycardia Right axis deviation Possible Right ventricular hypertrophy Nonspecific ST abnormality Abnormal ECG
--- NOTE | 2017-01-11 18:15 | Cardiology Report ---
APPROVED REPORT EXAM: Two-dimensional and M-mode echocardiogram with Doppler and color Doppler. INDICATION Shortness of breath M-Mode DIMENSIONS IVSd1.3 (0.7-1.1cm)Left Atrium (MM)3.4 (1.6-4.0cm) LVDd2.8 (3.5-5.6cm)Aortic Root3.1 (2.0-3.7cm) PWd1.1 (0.7-1.1cm)Aortic Cusp Exc.1.9 (1.5-2.0cm) LVDs1.0 (2.5-4.0cm) PWs1.8 cm Normal left ventricular chamber size, systolic function. Asynchronous septal motion due to right ventricular volume and pressure overload (D shaped septum) Left ventricular ejection fraction estimated to be 55 %. Mild left ventricular hypertrophy. Trivial pericardial effusion. Severe right atrial and right ventricular enlargement. Left atrial chamber size within normal limits. Focal aortic valve sclerosis with adequate cusp excursion. Mildly thickened mitral valve leaflets with normal excursion. Mild mitral annulus and aortic root calcification. Normal pulmonic valve structure. Normal tricuspid valve structure. IVC dilated at 2.7 cm without physiologic collapse, estimated RAP is 20 mmHg. Left ventricle D-shape pattern, suggestive of right ventricle volume overload. A color flow and spectral Doppler study was performed and revealed: Trace aortic regurgitation. Trace mitral regurgitation. Mitral diastolic velocities suggest reduced left ventricular relaxation c/w mild LV diastolic dysfunction (Grade I ). Severe tricuspid regurgitation. Tricuspid systolic velocities suggests peak right ventricular systolic pressure of 165mmHg, consistent with severe pulmonary hypertension. Mild pulmonic regurgitation present.
--- NOTE | 2017-01-11 19:12 | Cardiology Progress Note ---
Assessment/Plan Assessment/Plan [id number] ild / honey combing copd mild diastolic dysfunction pulm htn right heart failure tv regurgitation with hx of sbe Objective Last 24 Hour Vital Signs Date Time Temp Pulse Resp B/P (MAP) Pulse Ox O2 Delivery O2 Flow Rate FiO2 01/11/17 17:43 104 20 Nasal Cannula 5.0 40 01/11/17 16:00 4.0 40 01/11/17 16:00 97.7 96 19 129/87 98 4.0 40 01/11/17 16:00 96.3 101 22 137/93 97 Bi-pap 40 01/11/17 16:00 88 01/11/17 12:00 98.1 111 20 136/102 97 Bi-pap 40 01/11/17 11:59 98.1 96 20 138/96 98 4.0 40 01/11/17 11:56 4.0 40 01/11/17 11:56 90 01/11/17 10:41 101 26 100 Facial 40 01/11/17 10:35 99 16 133/95 100 Bi-pap 40 01/11/17 09:55 135/104 01/11/17 09:14 100 22 100 Facial 40 01/11/17 08:40 98 21 141/109 98 4.0 40 01/11/17 08:02 95 18 100 Facial 40 01/11/17 07:30 93 21 142/107 98 4.0 40 01/11/17 06:44 98.8 93 23 143/107 98 4.0 40 01/11/17 06:13 98.8 01/11/17 05:28 98.8 93 23 143/107 98 4.0 40 01/11/17 05:19 103 23 96 Facial 40 01/11/17 03:54 97 18 95 Facial 40 01/11/17 03:53 4.0 40 01/11/17 02:52 98.8 96 14 121/93 98 Bi-pap 4.0 40 01/11/17 01:18 98.8 103 24 137/91 94 Bi-pap 4.0 40 01/11/17 01:18 4.0 40 01/11/17 00:45 106 24 92 Bi-pap 01/11/17 00:44 108 24 92 Facial 40 01/11/17 00:05 99 16 99 Bi-pap 40 01/11/17 00:03 97 16 96 Facial 40 11/19/17 23:06 98.8 95 14 136/91 96 Bi-pap 40 01/10/17 22:11 101 22 96 Facial 40 01/10/17 21:58 40 01/10/17 21:45 106 25 Simple Mask 4.0 01/10/17 21:31 98.8 106 25 128/86 89 Simple Mask 4.0 01/10/17 21:08 98.8 110 24 122/85 87 Simple Mask 12.0 Intake and Output 01/11/17 01/12/17 19:00 07:00 Intake Total 425 ml Balance 425 ml Intake Oral 370 ml IV Total 55 ml Laboratory Tests Test 01/10/17 21:02 01/10/17 21:20 01/10/17 22:05 01/11/17 04:30 White Blood Count 13.0 K/UL (4.8-10.8) H 9.6 K/UL (4.8-10.8) Red Blood Count 4.28 M/UL (4.20-5.40) 4.67 M/UL (4.20-5.40) Hemoglobin 11.6 G/DL (12.0-16.0) L 12.7 G/DL (12.0-16.0) Hematocrit 39.1 % (37.0-47.0) 41.7 % (37.0-47.0) Mean Corpuscular Volume 91 FL (80-99) 89 FL (80-99) Mean Corpuscular Hemoglobin 27.2 PG (27.0-31.0) 27.2 PG (27.0-31.0) Mean Corpuscular Hemoglobin Concent 29.8 G/DL (32.0-36.0) L 30.5 G/DL (32.0-36.0) L Red Cell Distribution Width 18.9 % (11.6-14.8) H 19.0 % (11.6-14.8) H Platelet Count 286 K/UL (150-450) 302 K/UL (150-450) Mean Platelet Volume 5.5 FL (6.5-10.1) L 6.6 FL (6.5-10.1) Neutrophils (%) (Auto) 86.5 % (45.0-75.0) H % (45.0-75.0) Lymphocytes (%) (Auto) 4.7 % (20.0-45.0) L % (20.0-45.0) Monocytes (%) (Auto) 6.1 % (1.0-10.0) % (1.0-10.0) Eosinophils (%) (Auto) 0.6 % (0.0-3.0) % (0.0-3.0) Basophils (%) (Auto) 2.1 % (0.0-2.0) H % (0.0-2.0) Sodium Level 143 MMOL/L (136-145) 142 MMOL/L (136-145) Potassium Level 3.9 MMOL/L (3.5-5.1) 4.1 MMOL/L (3.5-5.1) Chloride Level 111 MMOL/L (98-107) H 107 MMOL/L (98-107) Carbon Dioxide Level 23 MMOL/L (21-32) 27 MMOL/L (21-32) Anion Gap 9 mmol/L (5-15) 9 mmol/L (5-15) Blood Urea Nitrogen 8 mg/dL (7-18) 9 mg/dL (7-18) Creatinine 0.7 MG/DL (0.55-1.30) 0.9 MG/DL (0.55-1.30) Estimat Glomerular Filtration Rate > 60 mL/min (>60) > 60 mL/min (>60) Glucose Level 126 MG/DL (74-106) H 139 MG/DL (74-106) H Calcium Level 8.2 MG/DL (8.5-10.1) L 8.9 MG/DL (8.5-10.1) Total Bilirubin 0.4 MG/DL (0.2-1.0) 0.5 MG/DL (0.2-1.0) Aspartate Amino Transf (AST/SGOT) 27 U/L (15-37) 24 U/L (15-37) Alanine Aminotransferase (ALT/SGPT) 42 U/L (12-78) 47 U/L (12-78) Alkaline Phosphatase 80 U/L (46-116) 91 U/L (46-116) Total Creatine Kinase 51 U/L (26-308) Creatine Kinase MB 3.2 NG/ML (0.0-3.6) Creatine Kinase MB Relative Index 6.2 Troponin I 0.035 ng/mL (0.000-0.056) Pro-B-Type Natriuretic Peptide 2456 pg/mL (0-125) H Total Protein 5.6 G/DL (6.4-8.2) L 6.5 G/DL (6.4-8.2) Albumin 2.6 G/DL (3.4-5.0) L 3.0 G/DL (3.4-5.0) L Globulin 3.0 g/dL 3.5 g/dL Albumin/Globulin Ratio 0.9 (1.0-2.7) L 0.9 (1.0-2.7) L Lipase 48 U/L (73-393) L Lactic Acid Level 1.70 mmol/L (0.66-2.22) Arterial Blood pH 7.493 (7.350-7.450) Arterial Blood Partial Pressure CO2 28.7 mmHg (35.0-45.0) L Arterial Blood Partial Pressure O2 46.0 mmHg (75.0-100.0) Arterial Blood HCO3 21.5 mmol/L (22.0-26.0) L Arterial Blood Oxygen Saturation 67.0 % (92.0-98.0) L Arterial Blood Base Excess -0.7 Dell Test Positive Differential Total Cells Counted 100 Neutrophils % (Manual) 97 % (45-75) H Lymphocytes % (Manual) 2 % (20-45) L Monocytes % (Manual) 1 % (1-10) Eosinophils % (Manual) 0 % (0-3) Basophils % (Manual) 0 % (0-2) Band Neutrophils 0 % (0-8) Platelet Estimate Adequate Platelet Morphology Normal Red Blood Cell Morphology Hypochromasia 1+ Anisocytosis 1+ ZAIRA FARLEY Jan 11, 2017 19:12
--- NOTE | 2017-01-11 21:15 | Consultation ---
DATE OF CONSULTATION: 01/11/2017 CARDIOLOGY CONSULTATION CONSULTING PHYSICIAN: Toñito Mullins M.D. REFERRING PHYSICIAN: Neli Tucker M.D. REASON FOR REFERRAL: Persistent shortness of breath in the setting of history of endocarditis. HISTORY OF PRESENT ILLNESS: The patient is a 66-year-old female who was brought to the emergency room from a convalescent facility with increasing shortness of breath. She indicates she is having some spasms in her back and the spasm became so she got short of breath the patient was brought to the emergency room. Paramedics were summoned. She noticed at that time that her legs were swollen and she has had that on prior occasions. Nevertheless, she denies any chest pain. Denies any palpitation unless she is physically exerted, so she has dyspnea on exertion and she has occasional PND. No orthopnea. PAST MEDICAL HISTORY: Positive with history of diastolic heart failure and COPD with exacerbations; history of tricuspid valve endocarditis, which has been treated with intravenous antibiotics; systemic hypertension; history of arthritis; diverticulosis; gastritis. ALLERGIES: She denies any allergy to medications. SOCIAL HISTORY: She used to smoke. She indicates she has less than one pack per day smoking. She quit approximately six months ago. No drug use previously. She was in a convalescent facility. No alcohol at this time. REVIEW OF SYSTEMS: GASTROINTESTINAL: She denies. GENITOURINARY: She denies. PULMONARY: She does have some coughing. CONSTITUTIONAL: No fevers, chills, or night sweats. NEUROLOGIC: Negative. PHYSICAL EXAMINATION: GENERAL: An elderly female, in no respiratory distress. NECK: Supple. No jugular venous distention. LUNGS: Decreased breath sounds are noted bilaterally. No crackles. No wheezes are noted. CARDIAC: Regular rate and rhythm. No heaves, thrills, or gallops noted. ABDOMEN: Soft and nontender. Positive bowel sounds. EXTREMITIES: There is 1+ edema in lower extremities bilaterally. LABORATORY AND DIAGNOSTIC DATA: Her white count is 9.6 down from 13, with a hemoglobin of 12.7, with a platelet count of 302. Blood gases - pH of 7.43, pCO2 of 28, pO2 of 46, and 67% saturated, likely venous blood gas. Sodium 140, potassium 4.1, chloride 107, bicarbonate 27, BUN of 9, creatinine 0.9, and glucose of 139. Troponin on one occasion yesterday was 0.035. ProBNP was 2400. Her vital signs, blood pressure 129/87 to 136/102. Telemetry, sinus rhythm, sinus tachycardia. EKG, sinus rhythm, right axis deviation, incomplete right bundle-branch conduction defect, possibly right ventricular. A chest x-ray shows cardiomegaly, bilateral interstitial prominences, interstitial fibrosis possibility with small bilateral pleural effusions, old granulomata. A CT scan of the chest shows no evidence of acute pulmonary embolism, COPD changes, diffuse bilateral pulmonary parenchymal disease, probably honeycombing consistent with chronic interstitial fibrosis, small bilateral pleural effusions, right-sided cardiomegaly, mild ectasia of the pulmonary artery, acute edema of the mediastinum, though lesser degree, subcutaneous fat, sliding hiatal hernia, compression deformity of the T8, liver cysts, and hepatomegaly. ASSESSMENT AND PLAN: 1. Dyspnea, probably a combination of chronic obstructive pulmonary disease as well as honeycombing as well as possibly a component of diastolic dysfunction and failure, although that does not appear to be prominent. 2. History of tricuspid valve endocarditis. 3. Chronic obstructive pulmonary disease. 4. Honeycombing. 5. Significant pulmonary hypertension and right ventricular enlargement, which is likely secondary to her chronic lung disease. 6. Cor pulmonale. Dr. Tucker, this patient was seen in cardiac consultation. The patient has several reasons to have shortness of breath, two of which were prominent on her chest x-ray and CT scan findings. She does have some mild diastolic relaxation abnormality. She has significant tricuspid regurgitation with pulmonary artery systolic pressures of being severely elevated to 160, dilated IVC, and evidence of pulmonary hypertension. There has been no evidence of pulmonary embolism on her CT scan. She probably should have a venous duplex of the lower extremities. Repeat cardiac enzymes should be continued on her medications including intermittent spot doses of diuretics as needed to decrease the amount of fluid in her right leg. Toñito Mullins M.D. DR: AYLIN JOB#: [id number] CC:
[2017-01-12] VITALS: BP 122/91
[2017-01-12] MEDS: Cefepime 1gm/D5W 55ml IVPB SCH ×4 (00:52→12:38)
[2017-01-12] MEDS: Solu-MEDROL 125mg Inj IV SCH ×4 (00:53→18:29)
[2017-01-12] MEDS: Morphine Sulfate 2mg/ml Inj IVP PRN ×4 (01:46→18:53)
[2017-01-12 04:00] VITALS: BP 117/84
[2017-01-12 08:00] VITALS: BP 106/78
[2017-01-12] MEDS: HydrALAZINE 10mg Tab ORAL SCH (09:00)
[2017-01-12] MEDS: Heparin 5000 units/ml inj SUBQ SCH (09:41)
--- NOTE | 2017-01-12 11:37 | Infectious Diseases Prog Note ---
Assessment/Plan Assessment/Plan Abx: Cefepime 01/11- Levaquin x1 01/11 Assesment: Acute SOB- multifacotiral- combination of R heart failure 2ry to severe TR (?TV endocarditis) and COPD exacerbation- r/o PNA -TTE: Severe tricuspid regurgitation. right ventricle volume overload. Mildly thickened mitral valve leaflets with normal excursion. Mild mitral annulus and aortic root calcification. Mitral diastolic velocities suggest reduced left ventricular relaxation c/w mild LV diastolic dysfunction (Grade I ). -CTA chest: No evidence of acute pulmonary embolus. COPD changes. Diffuse bilateral pulmonary parenchymal disease, appearance predominantly that of honeycombing, consistent with chronic interstitial fibrotic changes. Superimposed acute parenchymal changes also a possibility, Small bilateral pleural effusions. Cardiomegaly, predominantly right-sided Mild ectasia of the main pulmonary arteries bilaterally, could indicate pulmonary to hypertension, Edema of the mediastinum and to a lesser extent the subcutaneous fat. Sliding- type hiatal hernia. Esophageal wall thickening could be on the basis of esophagitis. T8 compression fracture deformity, acuity indeterminate. Consider MRI if this is clinically relevant. Evidence of old granulomatous disease. Liver cyst. Additional subcentimeter low-attenuation lesions in the liver, most likely benign simple cysts. No further followup necessary. Hepatomegaly. 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 -per SNF med list: Vanco and Ceftriaxone until 01/19 -Bcx 01/10 02/25 GPC clusters- ?contaminant vs real -ESR/CRP 01/12 normal Leukocytosis, resolved -afebrile -Bcx p CHF hx gastritis hxdiverticultis COPD on home O2 Plan: -Continue Cefepime pending sputum cx -original expected end date for endocarditis was 01/19; final duration to follow -Switch IV Vancomycin to Daptomycin 8mg/kg qd given GP bacteremia as patient was already on Vancomycin (unclear at this point if cx a contaminant or real) -obtain 2 sets of Bcx -will discuss wit cardiology re role for BABATUNDE and CT sx eval given severe TR, ? TV endocarditis and R heart failure which is an indications for valve replacement. -f/u cx -Monitor CBC/BMP, temperatures Thank you for this consultation. Will continue to follow along with you. Discussed with RN and Dr Tucker Subjective Allergies: Coded Allergies: No Known Allergies (Unverified , 01/10/17) Subjective afebrile no leukocytosis normal ESR/CRP 1/4 GPC bcx TTE with R heart failure now on 4L NC SOB better Objective Vital Signs Last 24 Hour Vital Signs Date Time Temp Pulse Resp B/P (MAP) Pulse Ox O2 Delivery O2 Flow Rate FiO2 01/12/17 09:43 99 Nasal Cannula 4.0 36 01/12/17 09:42 Nasal Cannula 4.0 36 01/12/17 09:00 106/78 01/12/17 08:00 45 01/12/17 08:00 92 01/12/17 08:00 97.0 92 20 106/78 100 Nasal Cannula 4.0 01/12/17 04:00 45 01/12/17 04:00 80 01/12/17 04:00 96.7 81 22 117/84 96 Venturi Mask 45 01/12/17 00:00 45 01/12/17 00:00 89 01/12/17 00:00 96.7 88 22 122/91 96 Venturi Mask 45 01/11/17 21:08 137/93 01/11/17 21:07 104 137/93 01/11/17 20:00 97.4 96 22 126/95 91 Nasal Cannula 5.0 01/11/17 20:00 97 01/11/17 20:00 45 01/11/17 17:43 104 20 Nasal Cannula 5.0 40 01/11/17 16:00 4.0 40 01/11/17 16:00 97.7 96 19 129/87 98 4.0 40 01/11/17 16:00 96.3 101 22 137/93 97 Bi-pap 40 01/11/17 16:00 88 01/11/17 12:00 98.1 111 20 136/102 97 Bi-pap 40 01/11/17 11:59 98.1 96 20 138/96 98 4.0 40 01/11/17 11:56 4.0 40 01/11/17 11:56 90 Height (Feet): 5 Height (Inches): 4.00 Weight (Pounds): 200 Objective General Appearance: WD/WN, no apparent distress Lines, tubes and drains: peripheral HEENT: normocephalic Neck: non-tender, normal alignment Respiratory/Chest: chest wall non-tender, rhonchi - left, rhonchi - right Cardiovascular/Chest: normal peripheral pulses, normal rate Abdomen: normal bowel sounds, non tender Genitourinary/Rectal: normal genital exam, normal rectal exam Extremities: normal range of motion, non-tender, no swelling, erythema or TTP on joints Skin Exam: normal pigmentation, no rashes or lesions 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 Complete Laboratory Tests Test 01/12/17 05:00 Erythrocyte Sedimentation Rate 2 MM/HR (0-30) C-Reactive Protein, Quantitative 0.6 mg/dL (0.00-0.90) Current Medications Medications (Trade) Dose Ordered Sig/Napoleon Route PRN Reason Start Time Stop Time Status Last Admin Dose Admin Acetaminophen (Tylenol) 650 mg Q4H PRN ORAL fever 01/10/17 23:30 02/09/17 23:29 Albuterol/ Ipratropium (Albuterol/ Ipratropium) 3 ml EVERY 4 HOURS PRN HHN dyspnea 01/10/17 23:30 01/15/17 23:29 Amlodipine Besylate (Norvasc) 10 mg BEDTIME ORAL 01/11/17 21:00 02/10/17 20:59 01/11/17 21:07 Cefepime HCl 1 gm/ Dextrose 55 ml @ 110 mls/hr Q12HR@0000,1200 IVPB 01/11/17 12:00 01/18/17 11:59 01/12/17 00:52 Chlorhexidine Gluconate (Lis-Hex 2%) 1 applic Q24H TOPIC 01/12/17 20:00 02/11/17 19:59 Clonidine HCl (Catapres) 0.1 mg Q4H PRN ORAL sbp more than 160 01/11/17 10:00 02/10/17 09:59 Dextrose (Dextrose 50%) STAT PRN IV Hypoglycemia 01/10/17 23:30 02/09/17 23:29 Heparin Sodium (Porcine) (Heparin 5000 units/ml) 5,000 units EVERY 12 HOURS SUBQ 01/11/17 09:00 02/10/17 08:59 01/12/17 09:41 Hydralazine HCl (Apresoline) 10 mg EVERY 12 HOURS ORAL 01/11/17 09:00 02/10/17 08:59 01/11/17 21:08 Lorazepam (Ativan 2mg/ml 1ml) 0.5 mg Q4H PRN IV For Anxiety 01/10/17 23:30 01/17/17 23:29 01/11/17 08:07 Lorazepam (Ativan) 0.5 mg Q6HR PRN ORAL For Anxiety 01/10/17 23:30 01/17/17 23:29 Methylprednisolone Sodium Succinate (Solu-MEDROL) 60 mg EVERY 6 HOURS IV 01/11/17 00:00 02/10/17 00:00 01/12/17 05:50 Morphine Sulfate (Morphine Sulfate) 2 mg EVERY 4 HOURS PRN IVP severe pain 7-10 01/10/17 23:30 01/17/17 23:29 01/12/17 06:07 Nitroglycerin (Ntg) 0.4 mg Q5M X 3 DOSES PRN SL Prn Chest Pain 01/10/17 23:30 02/09/17 23:29 Ondansetron HCl (Zofran) 4 mg Q6H PRN IVP Nausea & Vomiting 01/10/17 23:30 02/09/17 23:29 Pantoprazole (Protonix) 40 mg DAILY ORAL 01/11/17 09:00 02/10/17 08:59 01/12/17 09:33 Promethazine HCl/ Codeine (Phenergan with Codeine) 5 ml EVERY 6 HOURS PRN ORAL cough 01/10/17 23:30 02/09/17 23:29 Temazepam (Restoril) 15 mg HSPRN PRN ORAL Insomnia 01/10/17 23:30 01/17/17 23:29 Ro Chacon M.D. Jan 12, 2017 11:37
[2017-01-12 12:00] VITALS: BP 119/92
[2017-01-12] MEDS ORDERED: Vancomycin 1.5gm/D5W 250ml 250 ML IVPB ONE (13:00)
[2017-01-12 16:00] VITALS: BP 124/90
[2017-01-12] MEDS ORDERED: DAPTOMYCIN IV SCH (16:00)
[2017-01-12] MEDS ORDERED: NS IV SCH (16:00)
--- NOTE | 2017-01-12 16:18 | Cardiology Progress Note ---
Assessment/Plan Assessment/Plan 1. Dyspnea, probably a combination of chronic obstructive pulmonary disease as well as honeycombing abd diastolic dysfunction and failure, 2. History of tricuspid valve endocarditis. 3. Chronic obstructive pulmonary disease. 4. Honeycombing. 5. Significant pulmonary hypertension and right ventricular enlargement, 6. Cor pulmonale 7. bacteremia 7. TR sig but not sure how much existed prior to sbe as she has sig lyung issue and p htn check orthostatic vitals as has sx decrease Norvasc dc hydralazine for now 1/2 bacteremia may be contaminant sed rate normal d/w id may be trasfered to another hospital Subjective Cardiovascular: Reports: lightheadedness, Denies: chest pain, palpitations Respiratory: Reports: shortness of breath, SOB with excertion, SOB at rest Gastrointestinal/Abdominal: Denies: abdominal pain Genitourinary: Denies: burning Objective Last 24 Hour Vital Signs Date Time Temp Pulse Resp B/P (MAP) Pulse Ox O2 Delivery O2 Flow Rate FiO2 01/12/17 15:24 89 01/12/17 15:24 5.0 01/12/17 12:00 5.0 01/12/17 12:00 97.5 91 20 119/92 90 Nasal Cannula 5.0 01/12/17 12:00 88 01/12/17 09:43 99 Nasal Cannula 4.0 36 01/12/17 09:42 Nasal Cannula 4.0 36 01/12/17 09:00 106/78 01/12/17 08:00 45 01/12/17 08:00 92 01/12/17 08:00 97.0 92 20 106/78 100 Nasal Cannula 4.0 01/12/17 04:00 45 01/12/17 04:00 80 01/12/17 04:00 96.7 81 22 117/84 96 Venturi Mask 45 01/12/17 00:00 45 01/12/17 00:00 89 01/12/17 00:00 96.7 88 22 122/91 96 Venturi Mask 45 01/11/17 21:08 137/93 01/11/17 21:07 104 137/93 01/11/17 20:00 97.4 96 22 126/95 91 Nasal Cannula 5.0 01/11/17 20:00 97 01/11/17 20:00 45 01/11/17 17:43 104 20 Nasal Cannula 5.0 40 General Appearance: alert Neck: no JVD Cardiovascular: normal rate, regular rhythm Respiratory/Chest: lungs clear Abdomen: normal bowel sounds, non tender, soft Extremities: no swelling Laboratory Tests Test 01/12/17 05:00 Erythrocyte Sedimentation Rate 2 MM/HR (0-30) Total Creatine Kinase 29 U/L (26-308) C-Reactive Protein, Quantitative 0.6 mg/dL (0.00-0.90) Microbiology Date/Time Source Procedure Growth Status 01/10/17 21:35 Blood Blood Culture - Preliminary Resulted 01/10/17 21:20 Blood Blood Culture - Preliminary NO GROWTH AFTER 24 HOURS Resulted 01/10/17 22:10 Nasal Nares MRSA Culture - Final NO METHICILLIN RESISTANT STAPH AUREUS... Complete ZAIRA FARLEY Jan 12, 2017 16:18
[2017-01-12] MEDS ORDERED: Dyna-Hex 2% Top Sol 2oz TOPIC SCH (20:00)
[2017-01-13] MEDS ORDERED: Vancomycin 1gm in D5W 275ml IVPB SCH (04:00)
--- NOTE | 2017-01-13 18:38 | Discharge Summary ---
Discharge Summary Hospital Course Date of Admission Jan 10, 2017 at 21:50 Date of Discharge Jan 12, 2017 at 20:00 Admitting Diagnosis ACS HPI Glenny Stevens is a 66 year old female who was admitted on Jan 10, 2017 at 21: 50 for Acute Coronary Syndrome Hospital Course [id number] Discharge Discharge Disposition Patient was discharged to Acute Care Facility(02) Discharge Diagnoses: Oanh Lamb NP Jan 13, 2017 18:38
--- NOTE | 2017-01-14 16:00 | Discharge Summary 2 SIG ---
DATE OF ADMISSION: 01/10/2017 DATE OF DISCHARGE: 01/12/2017 CONSULTANTS: 1. Toñito Mullins M.D. 2. Ro Chacon M.D. BRIEF HOSPITAL COURSE: The patient is a 66-year-old female with history of COPD on chronic O2, recent endocarditis, intermediate resident, was brought in by paramedics with complaint of chest pain on the left side associated with shortness of breath. She had exertional dyspnea as well as mild cough. She was recently hospitalized at [facility] [place] for COPD, CHF exacerbation, and endocarditis. On evaluation at ED, the patient came in with a PICC line as she was being treated with antibiotic at intermediate. She was hypoxemic with O2 saturation at 87. She was placed on BiPAP. Chest x-ray showed pulmonary congestion along with possible infiltrates. She was fairly hypoxic on ABG. She was continued on BiPAP. BNP was 2456. She was given IV Lasix. She had elevated WBC to 13. She had a chest CT that showed no acute pulmonary embolism, however, with severe emphysema, bronchial thickening, and bilateral pleural effusions. She was admitted to [facility] for acute respiratory failure with hypoxemia, COPD exacerbation, emphysema, and endocarditis. She was continued on BiPAP and was started on IV steroids. She was seen by Infectious Disease specialist. The patient had been on IV vancomycin and ceftriaxone at intermediate. She was continued on IV vancomycin and was given cefepime pending sputum culture. Blood culture showed growth of Staph coagulase negative. IV vancomycin was switched to daptomycin 8 mcg/kg per day given gram-positive bacteremia as the patient was already on vancomycin. Echocardiogram done showed left ventricular ejection fraction of 55%. She has significant tricuspid regurgitation with pulmonary artery systolic pressure severely elevated to 160, dilated IVD, and evidence of pulmonary hypertension. She was continued on diuretics. Care was transferred over to Dr. Monsivais. She was eventually transferred to [facility]. FINAL DIAGNOSES: 1. Acute respiratory failure. 2. Acute chronic obstructive pulmonary disease exacerbation. 3. Acute congestive heart failure, diastolic dysfunction. 4. Recent tricuspid valve endocarditis. 5. Cor pulmonale. 6. Honeycomb being of the lung consistent with chronic interstitial fibrotic changes. 7. Hypertension. 8. Emphysema. 9. Significant pulmonary hypertension and right ventricular enlargement. DISPOSITION: The patient was discharged to [facility]. Neli Tucker M.D. I have been assigned to dictate discharge summary on this account and I was not involved in the patient's management. Oanh Lamb N.P. DR: MEDHAT JOB#: [id number] CC:
== END 2017-01-12 20:00 | disposition short-term general hospital (02) | DRG 133 ==
LOC: EDBD 21:14 → EDBEDREQ 21:28 → EMR 21:45 → 2W 21:50 → EDBEDREQ 01-11 02:21 → UNDOADMIN 01-11 02:38 → 2E 01-11 02:38 → 2W 01-11 02:38 → ENRESERV 01-11 07:30 → EDBEDREQ 01-11 09:26
PROC: 5A09457 Assistance with Respiratory Ventilation, 24-96 Consecutive Hours, Continuous Positive Airway Pressure (ICD-10-PCS; principal; 2017-01-10)
DX: J96.21 Acute and chronic respiratory failure with hypoxia (principal); I50.31 Acute diastolic (congestive) heart failure; I38 Endocarditis, valve unspecified; I27.23 Pulmonary hypertension due to lung diseases and hypoxia; I27.81 Cor pulmonale (chronic); Z99.81 Dependence on supplemental oxygen; J44.1 Chronic obstructive pulmonary disease with (acute) exacerbation; I36.1 Nonrheumatic tricuspid (valve) insufficiency; J98.4 Other disorders of lung; D72.829 Elevated white blood cell count, unspecified; Z87.891 Personal history of nicotine dependence
CPT/HCPCS: 36415; 36600; 71010; 71275; 80053; 82550; 82553; 82803; 83605; 83690; 83880; 84484; 85007; 85025; 85651; 86140; 87040; 87081; 87181; 93005; 93306; 94660; 94664; 94760; 99285

== ENCOUNTER 2017-02-07 17:56 | Inpatient (IN) | payer MEDICAID, MEDICARE ==
[~2017-02-07] VITALS: Ht 165.1 cm; Wt 49.0 kg
[~2017-02-07 17:56] MED LIST: ACETAMINOPHEN325 M1 ORAL; AMLODIPINE BESY10 MG ORAL; APRESOLINE10 MG ORAL; ASPIRIN EC81 MG ORAL; ATIVAN0.5 MG ORAL; ATORVASTATIN CA10 MG ORAL; CATAPRES0.1 MG ORAL; CEFTRIAXONE2 G2 IV; COLACE250 MG ORAL; ISOSORBIDE MONO30 M1 PO; NORCO 5-325 TA1 EACH ORAL; PANTOPRAZOLE SO40 MG ORAL; RELISTOR150 MG PO
--- NOTE | 2017-02-07 18:12 | Emergency Room Report ---
History of Present Illness General Chief Complaint: Dyspnea/Respdistress Source: Patient, Medical Record, EMS Present Illness HPI 67-year-old female, coming from senior care, history of hypertension,? History of endocarditis, COPD, on 24 hour oxygen, presented shortness of breath. Per EMS patient became short of breath today, even with nonrebreather patient was satting at 89 Denies fever chills cough. Denies chest pain or abdominal pain. No nausea or vomiting When asked about history of endocarditis patient does not know answers No history of DVT or PE. Patient states that she does walk around in the senior care. Not immobilized. No recent surgeries Allergies: Coded Allergies: No Known Allergies (Unverified , 01/10/17) Patient History Past Medical History: see triage record Past Surgical History: none Pertinent Family History: none Reviewed Nursing Documentation: PMH: Agreed, PSxH: Agreed Nursing Documentation-PMH Hx Cardiac Problems: Yes - CHF Hx Hypertension: Yes Hx COPD: Yes Hx Cancer: No Hx Gastrointestinal Problems: No Hx Neurological Problems: No Review of Systems All Other Systems: negative except mentioned in HPI Physical Exam Vital Signs Date Time Temp Pulse Resp B/P (MAP) Pulse Ox O2 Delivery O2 Flow Rate FiO2 02/07/17 17:52 110 24 148/90 92 Simple Mask Sp02 EP Interpretation: abnormal - hypoxic on RA, 100 on NRB General Appearance: moderate distress, other - sob speaking in 3-4 word sentences, appears tired Head: normocephalic, atraumatic Eyes: bilateral eye normal inspection, bilateral eye PERRL, bilateral eye EOMI ENT: normal ENT inspection, normal pharynx, normal voice, moist mucus membranes Neck: normal inspection, full range of motion, supple Respiratory: other - tachypneic, hypoxic, good air entry b/l Cardiovascular #1: normal peripheral pulses, no edema, tachycardia Cardiovascular #2: 2+ radial (R), 2+ radial (L) Gastrointestinal: normal inspection, non tender, soft, non-distended, no guarding Musculoskeletal: normal inspection, back normal, normal range of motion, non- tender Neurologic: normal inspection, alert, oriented x3, responsive, motor strength/ tone normal, sensory intact, speech normal Psychiatric: normal inspection, judgement/insight normal, memory normal Skin: normal inspection, normal color, no rash, warm/dry, well hydrated, normal turgor Procedures Critical Care Time Critical Care Time 40 minutes of CC time 67-year-old female, short of breath VS: Tachycardia, tachypnea, hypoxic PLAN: IV access, labs, lactate, troponin, Blood/Urine Cx, Abx, IVF Anticipate admission to . [facility] CC time also includes review of labs, review of EMR, discussion with family and paperwork from SNF, d/w hospitalist CC could include dosing of pressors, additional Abx CC time does not include procedures Medical Decision Making Diagnostic Impression: Primary Impression: Respiratory distress Additional Impressions: Hypoxia Severe sepsis Lactic acidosis Hypoglycemia Acute renal failure ER Course 67-year-old female presents with worsening shortness of breath for one day DDX: COPD exacerbation, ACS, pneumonia, PE Plan: IV access, hall monitor, O2 nasal cannula, EKG, CXR obtain basic labs including blood gas, troponin Will consider BIPAP for persistent or worsening respiratory status ER Course: Patient was not wheezing upon coming to the emergency room, however was short of breath and hypoxic, was placed on BiPAP immediately IVF 2L bolus given broad spec abx patient remains awake, on bipap, aox4 not c/o of abdominal pain lactate noted to be elevated -- possibly 2/2 to sepsis glucose noted - amp d50 given Sepsis Re-examination Time: 10 PM VS: Temp 97 HR 99 BP when 126/100 RR 22 CVS: RRR Respiratory: Lungs clear bilaterally Peripheral pulses: 2+ radial Capillary refill: <2 seconds Skin exam: warm, dry, no rash, not mottled Disposition: Patient will be admitted to [facility]. D/W hospitalist Dr Monsivais who has accepted pt for admission Please note that this Emergency Department Report was dictated using [employer]a crew chief technology software, occasionally this can lead to erroneous entry secondary to interpretation by the dictation equipment. EKG Diagnostic Results EP Interpretation: Yes Rate: Tachycardic Rhythm: NSR ST Segments: right axis deviation, Q waves in lead 3 and aVF, multifocal atrial tachycardia ASA given to patient: no Rhythm Strip EP Interpretation: Yes Rate: 110 Rhythm: NSR, no PVCs, no ectopy Chest X-ray CXR: Ordered: Yes 1 view Indication: Short of breath EP interpretation: Yes Interpretation: No consolidation, no effusion, no PTX, no acute cardiopulmonary disease Impression: No acute disease Electronically signed by Skyler Meneses MD Laboratory Tests Test 02/07/17 18:03 02/07/17 18:30 02/07/17 20:07 02/07/17 21:21 Arterial Blood pH 7.177 (7.350-7.450) 7.225 (7.350-7.450) Arterial Blood Partial Pressure CO2 20.5 mmHg (35.0-45.0) *L 19.5 mmHg (35.0-45.0) *L Arterial Blood Partial Pressure O2 306.3 mmHg (75.0-100.0) H 60.9 mmHg (75.0-100.0) L Arterial Blood HCO3 7.4 mmol/L (22.0-26.0) L 8.5 mmol/L (22.0-26.0) L Arterial Blood Oxygen Saturation 99.3 % (92.0-98.0) H 84.9 % (92.0-98.0) L Arterial Blood Base Excess -19.0 -16.5 Dell Test Positive Positive White Blood Count 19.1 K/UL (4.8-10.8) H Red Blood Count 5.12 M/UL (4.20-5.40) Hemoglobin 12.4 G/DL (12.0-16.0) Hematocrit 45.3 % (37.0-47.0) Mean Corpuscular Volume 89 FL (80-99) Mean Corpuscular Hemoglobin 24.3 PG (27.0-31.0) L Mean Corpuscular Hemoglobin Concent 27.4 G/DL (32.0-36.0) L Red Cell Distribution Width 18.8 % (11.6-14.8) H Platelet Count 465 K/UL (150-450) H Mean Platelet Volume 6.7 FL (6.5-10.1) Neutrophils (%) (Auto) % (45.0-75.0) Lymphocytes (%) (Auto) % (20.0-45.0) Monocytes (%) (Auto) % (1.0-10.0) Eosinophils (%) (Auto) % (0.0-3.0) Basophils (%) (Auto) % (0.0-2.0) Differential Total Cells Counted 100 Neutrophils % (Manual) 84 % (45-75) H Lymphocytes % (Manual) 7 % (20-45) L Monocytes % (Manual) 9 % (1-10) Eosinophils % (Manual) 0 % (0-3) Basophils % (Manual) 0 % (0-2) Band Neutrophils 0 % (0-8) Nucleated Red Blood Cells 2 /100 WBC Platelet Estimate Increased H Platelet Morphology Normal Red Blood Cell Morphology Normal Sodium Level 144 MMOL/L (136-145) Potassium Level 4.6 MMOL/L (3.5-5.1) Chloride Level 101 MMOL/L (98-107) Carbon Dioxide Level 11 MMOL/L (21-32) L Anion Gap 32 mmol/L (5-15) H Blood Urea Nitrogen 53 mg/dL (7-18) H Creatinine 2.4 MG/DL (0.55-1.30) H Estimate Glomerular Filtration Rate 24.4 mL/min (>60) Glucose Level 45 MG/DL (74-106) L Lactic Acid Level 16.60 mmol/L (0.66-2.22) H 13.30 mmol/L (0.66-2.22) H Calcium Level 10.1 MG/DL (8.5-10.1) Total Bilirubin 2.2 MG/DL (0.2-1.0) H Direct Bilirubin 1.7 MG/DL (0.0-0.3) H Aspartate Amino Transferase (AST) 90 U/L (15-37) H Alanine Aminotransferase (ALT) 32 U/L (12-78) Alkaline Phosphatase 78 U/L (46-116) Total Creatine Kinase 52 U/L (26-308) Troponin I 0.000 ng/mL (0.000-0.056) Pro-B-Type Natriuretic Peptide 58645 pg/mL (0-125) H Total Protein 7.8 G/DL (6.4-8.2) Albumin 3.5 G/DL (3.4-5.0) Globulin 4.3 g/dL Albumin/Globulin Ratio 0.8 (1.0-2.7) L Last Vital Signs Date Time Temp Pulse Resp B/P (MAP) Pulse Ox O2 Delivery O2 Flow Rate FiO2 02/07/17 17:52 110 24 148/90 92 Simple Mask Disposition: ADMITTED INPATIENT Condition: Critical Skyler Meneses M.D. Feb 07, 2017 18:12
[2017-02-07 18:13] LABS: ABG PCO2 20.5 mmHg (35.0-45.0)
[2017-02-07 18:14] LABS: ABG ALLEN TEST POSITIVE
[2017-02-07 18:59] LABS: MEAN CORPUSCULAR HEMOGLOBIN 24.3 PG (27.0-31.0); MEAN CORPUSCULAR HGB CONC 27.4 G/DL (32.0-36.0); MEAN CORPUSCULAR VOLUME 89 FL (80-99); MEAN PLATELET VOLUME 6.7 FL (6.5-10.1); PLATELET COUNT 465 K/UL (150-450); RED BLOOD COUNT 5.12 M/UL (4.20-5.40); RED CELL DISTRIBUTION WIDTH 18.8 % (11.6-14.8); WHITE BLOOD COUNT 19.1 K/UL (4.8-10.8)
[2017-02-07 19:00] VITALS: BP 135/78
[2017-02-07] MEDS ORDERED: NS IVPB ONE (19:15)
[2017-02-07] MEDS ORDERED: Cefepime HCl 2 GM in NS 110 ML IV ONE (19:15)
[2017-02-07] MEDS ORDERED: VANCOMYCIN IVPB ONE (19:15)
[2017-02-07 19:21] LABS: ANION GAP 32 mmol/L (5-15); CALCIUM 10.1 MG/DL (8.5-10.1); CARBON DIOXIDE 11 MMOL/L (21-32); CHLORIDE 101 MMOL/L (98-107); CREATININE 2.4 MG/DL (0.55-1.30); GLOMERULAR FILTRATION RATE 24.4 mL/min (>60); POTASSIUM 4.6 MMOL/L (3.5-5.1); SODIUM 144 MMOL/L (136-145)
[2017-02-07] MEDS ORDERED: Cefepime 2gm ONE (19:22)
[2017-02-07 19:34] LABS: REFLEX LACTIC ACID YES OR NO YES
[2017-02-07 19:37] LABS: ALANINE AMINOTRANSFERASE 32 U/L (12-78); ALBUMIN/GLOBULIN RATIO 0.8 (1.0-2.7); ASPARTATE AMINO TRANSFERASE 90 U/L (15-37); TOTAL PROTEIN 7.8 G/DL (6.4-8.2)
[2017-02-07 19:38] LABS: BILIRUBIN,DIRECT 1.7 MG/DL (0.0-0.3)
[2017-02-07 20:00] LABS: LYMPHOCYTES % (MANUAL) 7 % (20-45); NEUTROPHILS % (MANUAL) 84 % (45-75); PLATELET MORPHOLOGY NORMAL; TOTAL CELLS COUNTED 100
[2017-02-07 20:01] LABS: BAND NEUTROPHILS % (MANUAL) 0 % (0-8); BASOPHILS % (MANUAL) 0 % (0-2); EOSINOPHILS % (MANUAL) 0 % (0-3); NUCLEATED RED BLOOD CELLS 2 /100 WBC; PLATELET ESTIMATE INCREASED
[2017-02-07] MEDS ORDERED: Vancomycin 1gm inj IVPB ONE (20:26)
[2017-02-07 21:37] LABS: ABG PCO2 19.5 mmHg (35.0-45.0)
[2017-02-07 21:38] LABS: ABG ALLEN TEST POSITIVE; ABG BASE EXCESS -16.5
[2017-02-07] MEDS ORDERED: Sodium Bicarbonate 50ml Carp IV ONE (21:45)
[2017-02-07 21:46] VITALS: BP 119/88
[2017-02-07 22:16] LABS: REFLEX LACTIC ACID YES OR NO YES
[2017-02-07 22:49] LABS: APPEARANCE,URINE CLEAR; KETONES,URINE 1+ (NEGATIVE); LEUKOCYTE ESTERASE ,URINE 2+ (NEGATIVE); NITRITE,URINE NEGATIVE (NEGATIVE); PH,URINE 5 (4.5-8.0); PROTEIN,URINE 2+ (NEGATIVE); UROBILINOGEN,URINE 4 MG/DL (0.0-1.0)
[2017-02-07 23:03] LABS: BACTERIA,URINE FEW /HPF; ICTOTEST NEGATIVE; RBC,URINE 0-2 /HPF (0 - 2); SQUAMOUS EPITHELIAL CELL,UR FEW /LPF (NONE/OCC)
[2017-02-07 23:05] VITALS: BP 120/91
[2017-02-08] VITALS (8 sets, daily range): BP systolic 114–149; BP diastolic 78–101
[2017-02-08] MEDS ORDERED: SERTRALINE HCL25 MG ORAL (05:12)
[2017-02-08] MEDS ORDERED: RESTORIL15 MG ORAL (05:12)
[2017-02-08] MEDS ORDERED: SPIRONOLACTONE25 MG ORAL (05:12)
[2017-02-08] MEDS ORDERED: SILDENAFIL20 MG ORAL (05:12)
[2017-02-08] MEDS ORDERED: PREDNISONE20 M1 PO (05:12)
[2017-02-08] MEDS ORDERED: Pantoprazole Inj ONE (10:37)
[2017-02-08] MEDS: NS w/KCl 20mEq 1,000 ML IV SCH (12:08)
[2017-02-08] MEDS: Zosyn 3.375gm q12h **Extended infusion IVPB SCH ×4 (12:08→23:09)
--- NOTE | 2017-02-08 12:56 | Diagnostic Imaging Report ---
Indication: Dyspnea Comparison: 01/10/2017 A single view chest radiograph was obtained. Findings: Cardiomegaly is present. Emphysema suspected in the upper lobes with lucency noted. Generalized prominence of the basilar interstitial demonstrated. Calcification in the aorticopulmonary window demonstrated. Bones are osteopenic. IMPRESSION: COPD. Old granulomatous disease
[2017-02-08] MEDS ORDERED: Piperacillin/Tazobactam 2.25 GM in D5W 55 ML IVPB SCH (14:00)
[2017-02-08] MEDS ORDERED: Vancomycin 1gm in D5W 275ml IVPB ONE (16:00)
--- NOTE | 2017-02-08 16:30 | History and Physical Report ---
DATE OF ADMISSION: 02/07/2017 HISTORY OF PRESENT ILLNESS: This is a 67-year-old female, who was brought to the hospital with shortness of breath. The patient was seen and worked up by the ER physician and the patient was placed on a BiPAP. She is a senior living resident and is a Full Code as per review of POLST form. At this time, no further information was obtainable from the ER records. The patient noted to have marked leukocytosis of 19,000 and a creatinine of 2.4. This apparently is a new finding. ABG shows 7.2, pCO2 of 60, and pO2 of 300. PAST MEDICAL HISTORY: Hypertension, history of endocarditis, COPD, and 24-hour oxygen usage. HOME MEDICATIONS: Reviewed in the chart. REVIEW OF SYSTEMS: Unreliable. ALLERGIES: None noted. PHYSICAL EXAMINATION: GENERAL: Reveals an emaciated, middle-aged female. HEENT: Unremarkable. CHEST: Exam showed decreased breath sounds bilaterally. HEART: Normal heart sounds. ABDOMEN: Soft. EXTREMITIES: There is no edema. NEUROLOGIC: Nonfocal. LABORATORY DATA: Lab testing shows white count 19,000, hemoglobin of 12, and platelet count is normal. Chemistry notable for creatinine 2.4. Lactic acid 16, now dropping to 13. Total bilirubin 2.2. ProBNP 11,616. ABG 7.2, pCO2 19, and pO2 of 60. Imaging studies per report was clear. IMPRESSION: 1. Chronic obstructive pulmonary disease with exacerbation. 2. Worsening renal failure with metabolic acidosis. 3. Leukocytosis, source unclear. 4. Lactic acidosis suspect sepsis. 5. History of congestive heart failure. DISCUSSION: Admitted to the hospital. Continue BiPAP, check ABG, start broad-spectrum antibiotics. We will consult Nephrology. We will attempt to obtain old records. We will follow carefully. [place] Monsivais M.D. DR: SADI JOB#: [id number] CC:
[2017-02-08] MEDS: Albuterol/Ipratropium 3ml neb HHN SCH ×2 (16:35→20:03)
[2017-02-08] MEDS: Heparin 5000 units/ml inj SUBQ SCH (21:23)
[2017-02-08] MEDS: Norco 5mg/325mg tab ORAL PRN (21:26)
[2017-02-09] VITALS (8 sets, daily range): BP systolic 121–139; BP diastolic 78–102
[2017-02-09] MEDS: Albuterol/Ipratropium 3ml neb HHN SCH ×4 (01:00→19:37)
[2017-02-09] MEDS: NS w/KCl 20mEq 1,000 ML IV SCH ×2 (01:45→16:09)
[2017-02-09] MEDS: Norco 5mg/325mg tab ORAL PRN ×2 (04:23→10:09)
[2017-02-09 05:20] LABS: MEAN CORPUSCULAR HEMOGLOBIN 25.4 PG (27.0-31.0); MEAN CORPUSCULAR HGB CONC 29.7 G/DL (32.0-36.0); MEAN CORPUSCULAR VOLUME 86 FL (80-99); MEAN PLATELET VOLUME 7.2 FL (6.5-10.1); PLATELET COUNT 323 K/UL (150-450); RED BLOOD COUNT 4.61 M/UL (4.20-5.40); RED CELL DISTRIBUTION WIDTH 18.5 % (11.6-14.8); WHITE BLOOD COUNT 17.6 K/UL (4.8-10.8)
[2017-02-09 05:35] LABS: ANION GAP 11 mmol/L (5-15); CALCIUM 8.6 MG/DL (8.5-10.1); CARBON DIOXIDE 23 MMOL/L (21-32); CHLORIDE 113 MMOL/L (98-107); CREATININE 1.1 MG/DL (0.55-1.30); GLOMERULAR FILTRATION RATE > 60 mL/min (>60); POTASSIUM 3.9 MMOL/L (3.5-5.1); SODIUM 147 MMOL/L (136-145)
[2017-02-09] MEDS: Pantoprazole Inj IV SCH ×2 (09:00→09:23)
[2017-02-09] MEDS: Heparin 5000 units/ml inj SUBQ SCH ×3 (09:00→20:27)
[2017-02-09 09:04] LABS: BAND NEUTROPHILS % (MANUAL) 0 % (0-8); BASOPHILS % (MANUAL) 0 % (0-2); EOSINOPHILS % (MANUAL) 0 % (0-3); LYMPHOCYTES % (MANUAL) 3 % (20-45); NEUTROPHILS % (MANUAL) 92 % (45-75); NUCLEATED RED BLOOD CELLS 4 /100 WBC; PLATELET ESTIMATE ADEQUATE; PLATELET MORPHOLOGY NORMAL; TOTAL CELLS COUNTED 100
[2017-02-09 09:05] LABS: ANISOCYTOSIS 1+
[2017-02-09 09:06] LABS: HYPOCHROMASIA 1+; POLYCHROMASIA 1+
[2017-02-09 09:33] LABS: ABG BASE EXCESS -3.3; ABG PCO2 33.3 mmHg (35.0-45.0)
[2017-02-09 09:34] LABS: ABG ALLEN TEST POSITIVE
--- NOTE | 2017-02-09 10:04 | Pulmonology Progress Note ---
Assessment/Plan Assessment/Plan 1. Chronic obstructive pulmonary disease with exacerbation. 2. Worsening renal failure with metabolic acidosis. 3. Leukocytosis, source unclear. 4. Lactic acidosis suspect sepsis. 5. History of congestive heart failure. DISCUSSION: Continue BiPAP prn; ABG adequate Continue abx Stable for transfer to [facility] Subjective Interval Events: Complaining of pain and nausea; off BiPAP Constitutional: Reports: no symptoms HEENT: Repors: no symptoms Respiratory: Reports: no symptoms Cardiovascular: Reports: no symptoms Gastrointestinal/Abdominal: Reports: no symptoms Genitourinary: Reports: no symptoms Allergies: Coded Allergies: No Known Allergies (Unverified , 01/10/17) Objective Last 24 Hour Vital Signs Date Time Temp Pulse Resp B/P (MAP) Pulse Ox O2 Delivery O2 Flow Rate FiO2 02/09/17 08:40 91 18 100 Bi-pap 70 02/09/17 08:35 87 18 99 Bi-pap 70 02/09/17 08:31 87 16 99 Facial 70 02/09/17 08:00 97.0 67 16 130/89 95 Bi-pap 70 02/09/17 07:39 70 02/09/17 07:39 89 02/09/17 05:00 82 13 96 Facial 70 02/09/17 04:00 70 02/09/17 04:00 98.1 98 18 128/85 100 Bi-pap 70 02/09/17 03:51 97 02/09/17 03:10 94 22 97 Facial 70 02/09/17 01:10 Bi-pap 70 02/09/17 01:10 Bi-pap 70 02/09/17 01:00 96 25 98 Facial 70 02/09/17 00:00 96 02/09/17 00:00 98.4 117 16 139/100 100 Bi-pap 70 02/08/17 23:07 92 16 100 Facial 70 02/08/17 21:15 98 18 99 Facial 70 02/08/17 20:00 70 02/08/17 20:00 97.4 97 21 149/101 100 Bi-pap 70 02/08/17 19:51 95 02/08/17 19:28 98 18 100 Bi-pap 70 02/08/17 19:20 95 18 100 Bi-pap 70 02/08/17 19:08 96 20 100 Facial 70 02/08/17 18:35 96 02/08/17 16:41 89 16 99 Bi-pap 70 02/08/17 16:36 92 16 99 Facial 70 02/08/17 16:00 97.3 98 18 122/91 100 Bi-pap 70 02/08/17 16:00 70 02/08/17 14:35 97 19 100 Facial 70 02/08/17 12:51 100 18 97 Facial 70 02/08/17 12:00 97.0 95 24 115/98 98 Bi-pap 70 02/08/17 12:00 70 02/08/17 11:30 99 21 131/95 99 Bi-pap 02/08/17 11:00 99 21 131/95 99 70 02/08/17 10:45 100 20 99 Facial 70 General Appearance: no acute distress HEENT: normocephalic Respiratory/Chest: chest wall non-tender, lungs clear Cardiovascular: normal peripheral pulses, normal rate Microbiology Date/Time Source Procedure Growth Status 02/07/17 18:40 Blood Blood Culture - Preliminary NO GROWTH AFTER 24 HOURS Resulted 02/07/17 18:30 Blood Blood Culture - Preliminary NO GROWTH AFTER 24 HOURS Resulted Laboratory Tests 02/08/17 12:15: Random Vancomycin Level 6.2 02/09/17 03:20: White Blood Count 17.6H, Red Blood Count 4.61, Hemoglobin 11.7L, Hematocrit 39.4 , Mean Corpuscular Volume 86, Mean Corpuscular Hemoglobin 25.4L, Mean Corpuscular Hemoglobin Concent 29.7L, Red Cell Distribution Width 18.5H, Platelet Count 323, Mean Platelet Volume 7.2, Neutrophils (%) (Auto) , Lymphocytes (%) (Auto) , Monocytes (%) (Auto) , Eosinophils (%) (Auto) , Basophils (%) (Auto) , Differential Total Cells Counted 100, Neutrophils % ( Manual) 92H, Lymphocytes % (Manual) 3L, Monocytes % (Manual) 5, Eosinophils % ( Manual) 0, Basophils % (Manual) 0, Band Neutrophils 0, Nucleated Red Blood Cells 4, Platelet Estimate Adequate, Platelet Morphology Normal, Polychromasia 1 +, Hypochromasia 1+, Anisocytosis 1+, Sodium Level 147H, Potassium Level 3.9, Chloride Level 113H, Carbon Dioxide Level 23, Anion Gap 11, Blood Urea Nitrogen 46H, Creatinine 1.1#, Estimat Glomerular Filtration Rate > 60, Glucose Level 137H, Calcium Level 8.6 02/09/17 09:25: Arterial Blood pH 7.410, Arterial Blood Partial Pressure CO2 33.3L, Arterial Blood Partial Pressure O2 82.3, Arterial Blood HCO3 20.6L, Arterial Blood Oxygen Saturation 95.1, Arterial Blood Base Excess -3.3, Dell Test Positive Current Medications Medications (Trade) Dose Ordered Sig/[place] Route PRN Reason Start Time Stop Time Status Last Admin Dose Admin Acetaminophen/ Hydrocodone Bitart ([place] 5/325) 2 tab Q6H PRN ORAL Severe Pain (Pain Scale 7-10) 02/08/17 21:00 02/12/17 21:00 02/09/17 04:23 Albuterol/ Ipratropium (Albuterol/ Ipratropium) 3 ml Q6HRT HHN 02/08/17 13:00 02/13/17 12:59 02/09/17 08:29 Dextrose (Dextrose 50%) STAT PRN IV Hypoglycemia 02/08/17 09:45 03/10/17 09:44 Heparin Sodium (Porcine) (Heparin 5000 units/ml) 5,000 units EVERY 12 HOURS SUBQ 02/08/17 21:00 03/10/17 20:59 02/09/17 09:23 Pantoprazole (Protonix) 40 mg DAILY IV 02/09/17 09:00 03/11/17 08:59 02/09/17 09:23 Piperacillin Sod/ Tazobactam Sod 3.375 gm/Dextrose 55 ml @ 13.75 mls/ hr Q12HR@1100,2300 IVPB 02/08/17 11:30 02/15/17 11:29 02/08/17 23:09 Sodium Chloride 1,000 ml @ 75 mls/hr [id number] IV 02/08/17 11:00 03/10/17 10:59 02/09/17 01:45 Vancomycin HCl (Vanco rx to dose) 1 ea DAILYPRN PRN MISC Per rx protocol 02/08/17 16:00 03/10/17 15:59 Washington Monsivais MD Feb 09, 2017 10:04
[2017-02-09] MEDS ORDERED: traMADol 50mg tab ORAL PRN (10:15)
[2017-02-09] MEDS: Zosyn 3.375gm q12h **Extended infusion IVPB SCH ×2 (11:40)
[2017-02-09] MEDS ORDERED: Vancomycin 500mg/D5W 110ml IVPB SCH ×2 (18:00)
[2017-02-09] MEDS ORDERED: Zosyn 3.375gm q8h **Extended infusion IVPB SCH ×2 (22:00)
--- NOTE | 2017-02-09 23:37 | Consultation ---
History of Present Illness General Date patient seen: Feb 09, 2017 Chief Complaint: Dyspnea/Respdistress Present Illness Allergies: Coded Allergies: No Known Allergies (Unverified , 01/10/17) Medication History Scheduled Amlodipine Besylate* (Amlodipine Besylate*), 10 MG ORAL BEDTIME, (Reported) Aspirin Ec* (Aspirin Ec*), 81 MG ORAL DAILY, (Reported) Atorvastatin Calcium* (Lipitor*), 10 MG ORAL BEDTIME, (Reported) Docusate Sodium (Docusate Sodium), 250 MG ORAL TWICE A DAY, (Reported) Hydralazine HCl (Hydralazine HCl), 10 MG ORAL EVERY 12 HOURS, (Reported) Isosorbide Mononitrate (Isosorbide Mononitrate Er), 30 MG PO DAILY, (Reported) Methylnaltrexone Hel[place] (Relistor), 450 MG PO BEFORE MEALS, (Reported) Pantoprazole* (Pantoprazole*), 40 MG ORAL DAILY, (Reported) Prednisone (Prednisone), 20 MG PO DAILY, (Reported) Sertraline Hcl* (Sertraline Hcl*), 25 MG ORAL DAILY, (Reported) Sildenafil Citrate (Sildenafil), 20 MG ORAL TID, (Reported) Spironolactone* (Aldactone*), 25 MG ORAL DAILY, (Reported) Scheduled PRN Acetaminophen* (Acetaminophen 325MG Tablet*), 325 MG ORAL Q6H PRN for Mild Pain (Pain Scale 1-3), (Reported) Acetaminophen* (Acetaminophen 325MG Tablet*), 325 MG ORAL Q6H PRN for temperature >101, (Reported) Ceftriaxone Sodium (Ceftriaxone), 2 GM IV DAILY PRN for endocarditis , (Reported ) Clonidine Hcl* (Catapres*), 0.1 MG ORAL EVERY 6 HOURS PRN for SBP >160, ( Reported) Hydrocodone Bit/Acetaminophen 5-325* ([place] 5-325*), 2 TAB ORAL Q4H PRN for For Pain, (Reported) Lorazepam* (Ativan*), 0.5 MG ORAL Q6HR PRN for For Anxiety, (Reported) Temazepam* (Restoril*), 15 MG ORAL BEDTIME PRN for Insomnia, (Reported) Patient History Healthcare decision maker Resuscitation status Full Code Advanced Directive on File No Physical Exam Last 24 Hour Vital Signs Date Time Temp Pulse Resp B/P (MAP) Pulse Ox O2 Delivery O2 Flow Rate FiO2 02/09/17 23:05 91 13 100 Facial 50 02/09/17 21:08 86 14 98 Facial 50 02/09/17 20:00 97.7 97 15 129/102 98 Venturi Mask 02/09/17 20:00 50 02/09/17 20:00 95 02/09/17 19:44 93 18 97 Bi-pap 50 02/09/17 19:37 89 18 95 Venturi Mask 14.0 55 02/09/17 19:36 88 15 98 Facial 50 02/09/17 17:09 95 16 98 Facial 50 02/09/17 16:00 97.5 93 19 121/86 96 Venturi Mask 55 02/09/17 15:58 85 02/09/17 15:58 50 02/09/17 14:48 96 16 96 Facial 50 02/09/17 13:38 87 16 99 Facial 70 02/09/17 13:30 92 18 98 Bi-pap 50 02/09/17 13:24 88 18 95 Venturi Mask 14.0 55 02/09/17 11:14 55 02/09/17 11:14 71 02/09/17 11:14 97.5 71 19 136/78 96 Venturi Mask 55 02/09/17 08:40 91 18 100 Bi-pap 70 02/09/17 08:35 87 18 99 Bi-pap 70 02/09/17 08:31 87 16 99 Facial 70 02/09/17 08:00 97.0 67 16 130/89 95 Bi-pap 70 02/09/17 07:39 70 02/09/17 07:39 89 02/09/17 05:00 82 13 96 Facial 70 02/09/17 04:00 70 02/09/17 04:00 98.1 98 18 128/85 100 Bi-pap 70 02/09/17 03:51 97 02/09/17 03:10 94 22 97 Facial 70 02/09/17 01:10 Bi-pap 70 02/09/17 01:10 Bi-pap 70 02/09/17 01:00 96 25 98 Facial 70 02/09/17 00:00 96 02/09/17 00:00 98.4 117 16 139/100 100 Bi-pap 70 Intake and Output 02/09/17 02/10/17 19:00 07:00 Intake Total 825 ml 423.75 ml Output Total 500 ml Balance 325 ml 423.75 ml Intake IV Total 825 ml 423.75 ml Output Urine Total 500 ml Laboratory Tests Test 02/09/17 03:20 02/09/17 09:25 White Blood Count 17.6 K/UL (4.8-10.8) H Red Blood Count 4.61 M/UL (4.20-5.40) Hemoglobin 11.7 G/DL (12.0-16.0) L Hematocrit 39.4 % (37.0-47.0) Mean Corpuscular Volume 86 FL (80-99) Mean Corpuscular Hemoglobin 25.4 PG (27.0-31.0) L Mean Corpuscular Hemoglobin Concent 29.7 G/DL (32.0-36.0) L Red Cell Distribution Width 18.5 % (11.6-14.8) H Platelet Count 323 K/UL (150-450) Mean Platelet Volume 7.2 FL (6.5-10.1) Neutrophils (%) (Auto) % (45.0-75.0) Lymphocytes (%) (Auto) % (20.0-45.0) Monocytes (%) (Auto) % (1.0-10.0) Eosinophils (%) (Auto) % (0.0-3.0) Basophils (%) (Auto) % (0.0-2.0) Differential Total Cells Counted 100 Neutrophils % (Manual) 92 % (45-75) H Lymphocytes % (Manual) 3 % (20-45) L Monocytes % (Manual) 5 % (1-10) Eosinophils % (Manual) 0 % (0-3) Basophils % (Manual) 0 % (0-2) Band Neutrophils 0 % (0-8) Nucleated Red Blood Cells 4 /100 WBC Platelet Estimate Adequate Platelet Morphology Normal Polychromasia 1+ Hypochromasia 1+ Anisocytosis 1+ Sodium Level 147 MMOL/L (136-145) H Potassium Level 3.9 MMOL/L (3.5-5.1) Chloride Level 113 MMOL/L (98-107) H Carbon Dioxide Level 23 MMOL/L (21-32) Anion Gap 11 mmol/L (5-15) Blood Urea Nitrogen 46 mg/dL (7-18) H Creatinine 1.1 MG/DL (0.55-1.30) # Estimat Glomerular Filtration Rate > 60 mL/min (>60) Glucose Level 137 MG/DL (74-106) H Calcium Level 8.6 MG/DL (8.5-10.1) Arterial Blood pH 7.410 (7.350-7.450) Arterial Blood Partial Pressure CO2 33.3 mmHg (35.0-45.0) L Arterial Blood Partial Pressure O2 82.3 mmHg (75.0-100.0) Arterial Blood HCO3 20.6 mmol/L (22.0-26.0) L Arterial Blood Oxygen Saturation 95.1 % (92.0-98.0) Arterial Blood Base Excess -3.3 Dell Test Positive Height (Feet): 5 Height (Inches): 5.00 Weight (Pounds): 108 Medications Current Medications Medications (Trade) Dose Ordered Sig/[place] Route PRN Reason Start Time Stop Time Status Last Admin Dose Admin Acetaminophen/ Hydrocodone Bitart ([place] 5/325) 2 tab Q6H PRN ORAL Severe Pain (Pain Scale 7-10) 02/08/17 21:00 02/12/17 21:00 02/09/17 10:09 Albuterol/ Ipratropium (Albuterol/ Ipratropium) 3 ml Q6HRT HHN 02/08/17 13:00 02/13/17 12:59 02/09/17 19:37 Dextrose (Dextrose 50%) STAT PRN IV Hypoglycemia 02/08/17 09:45 03/10/17 09:44 Heparin Sodium (Porcine) (Heparin 5000 units/ml) 5,000 units EVERY 12 HOURS SUBQ 02/08/17 21:00 03/10/17 20:59 02/09/17 20:27 Pantoprazole (Protonix) 40 mg DAILY IV 02/09/17 09:00 03/11/17 08:59 02/09/17 09:23 Piperacillin Sod/ Tazobactam Sod 3.375 gm/Dextrose 55 ml @ 13.75 mls/ hr EVERY 8 HOURS IVPB 02/09/17 22:00 02/14/17 21:59 02/09/17 21:15 Sodium Chloride 1,000 ml @ 75 mls/hr [id number] IV 02/08/17 11:00 03/10/17 10:59 02/09/17 16:09 Tramadol HCl (Ultram) 50 mg Q6H PRN ORAL Moderate Pain (Pain Scale 4-6) 02/09/17 10:15 02/16/17 10:14 Vancomycin HCl (Vanco rx to dose) 1 ea DAILYPRN PRN MISC Per rx protocol 02/08/17 16:00 03/10/17 15:59 Vancomycin HCl 500 mg/Dextrose 110 ml @ 110 mls/hr Q24H IVPB 02/09/17 18:00 02/14/17 17:59 02/09/17 18:33 MEGHAN JAFFE Feb 09, 2017 23:37
[2017-02-10] VITALS: BP 127/102
[2017-02-10] MEDS: Albuterol/Ipratropium 3ml neb HHN SCH (01:57)
[2017-02-10] MEDS ORDERED: Tubing IV Secondary IV ONE (02:14)
[2017-02-10] MEDS ORDERED: NS 500ML ONE (02:14)
--- NOTE | 2017-02-10 18:21 | Discharge Summary ---
Discharge Summary Hospital Course Date of Admission Feb 07, 2017 at 21:18 Date of Discharge Feb 10, 2017 at 02:15 Admitting Diagnosis hypoxia/sob HPI Glenny Stevens is a 67 year old female who was admitted on Feb 07, 2017 at 21: 18 for Hypoxia,Shortness Of Breath Hospital Course [id number] Discharge Discharge Disposition Patient was discharged to contracted hospital Discharge Diagnoses: Oanh Lamb NP Feb 10, 2017 18:21
--- NOTE | 2017-02-11 05:45 | Discharge Summary 2 SIG ---
DATE OF ADMISSION: 02/07/2017 DATE OF DISCHARGE: 02/10/2017 AUTO HEATER MECHANIC: George Corona M.D. BRIEF HOSPITAL COURSE: The patient is a 67-year-old female, who was brought to the hospital due to shortness of breath. The patient was evaluated at ED and was placed on BiPAP. She is a [facility] resident and Full Code per review of POLST form. She was noted to have marked leukocytosis, [place]BC [place] [address] and creatinine was 2.4 apparently this is a new finding. ABG showed pH is 7.2, pCO2 of 60, and pO2 of 300. She has past medical history significant for hypertension, endocarditis, COPD and on 24 hour oxygen use. She was admitted to [facility] for acute exacerbation of COPD and worsening renal failure with metabolic acidosis. She was continued on BiPAP and was started on IV antibiotics, Zosyn, and vancomycin. Chest x-ray done showed COPD and old granulomatous disease. She was eventually transferred to a contracted hospital. FINAL DIAGNOSES: 1. Acute chronic obstructive pulmonary disease exacerbation. 2. Worsening renal failure with metabolic acidosis. 3. Leukocytosis, source unclear. 4. Lactic acidosis, suspect sepsis. 5. History of congestive heart failure. DISPOSITION: The patient was transferred to [facility]. DISCHARGE MEDICATIONS: Refer the med list. Washington Monsivais M.D. I have been assigned to dictate discharge summary on this account and I was not involved in the patient's management. Oanh Lamb N.P. DR: MEDHAT JOB#: [id number] CC:
--- NOTE | 2017-02-13 00:29 | Cardiology Report ---
APPROVED REPORT EKG Measurement Heart [id number] Sinus tachycardia Right atrial enlargement Right axis deviation Pulmonary disease pattern Right ventricular hypertrophy Cannot rule out Inferior infarct, age undetermined Abnormal ECG
== END 2017-02-10 02:15 | disposition short-term general hospital (02) | DRG 140 ==
LOC: EDBD 17:56 → EMR 18:00 → EDBEDREQ 19:06 → 2W 21:18 → ENRESERV 02-08 07:30 → EDBEDREQ 02-08 08:11 → 2W 02-08 11:15
PROC: 5A09457 Assistance with Respiratory Ventilation, 24-96 Consecutive Hours, Continuous Positive Airway Pressure (ICD-10-PCS; principal; 2017-02-07)
DX: J44.1 Chronic obstructive pulmonary disease with (acute) exacerbation (principal); A41.9 Sepsis, unspecified organism; I50.9 Heart failure, unspecified; N19 Unspecified kidney failure; R06.03 Acute respiratory distress; I10 Essential (primary) hypertension
CPT/HCPCS: 36415; 36600; 71010; 80048; 80053; 80202; 81003; 82248; 82550; 82803; 83605; 83880; 84484; 85007; 85025; 87040; 87081; 87181; 93005; 94640; 94660; 99285; J7620